=== PATIENT | male | born 1965 | race Caucasian/White ===

== ENCOUNTER 2016-06-01 02:15 | Emergency (ER) | payer MEDICAID ==
[~2016-06-01] VITALS: Ht 180.3 cm; Wt 74.8 kg
[2016-06-01 02:21] VITALS: BP 130/82
== END 2016-06-01 02:53 | disposition home or self-care (01) ==
LOC: ED 02:46
DX: K08.89 Other specified disorders of teeth and supporting structures (principal)
CPT/HCPCS: 99283

== ENCOUNTER 2017-10-15 10:18 | Emergency (ER) | payer MEDICAID ==
[~2017-10-15] VITALS: Ht 180.3 cm; Wt 75.0 kg
[2017-10-15 11:16] LABS: BASOPHILS # (AUTO) 0.05 x10^3/uL (0-0.1); BASOPHILS % (AUTO) 1 % (0-1); EOSINOPHILS # (AUTO) 0.24 x10^3/uL (0-0.4); EOSINOPHILS % (AUTO) 2 % (1-7); LYMPHOCYTES # (AUTO) 2.66 x10^3/uL (1-3.4); LYMPHOCYTES % (AUTO) 26 % (22-44); MD NO; MEAN CORPUSCULAR HEMOGLOBIN 31.1 pg (27.5-34.5); MEAN CORPUSCULAR HGB CONC 34.3 g/dL (33.2-36.2); MEAN CORPUSCULAR VOLUME 90.7 fL (81-97); MONOCYTES # (AUTO) 0.65 x10^3/uL (0.2-0.8); MONOCYTES % (AUTO) 6 % (2-9); NEUTROPHILS % (AUTO) 65 % (42-75); PLATELET COUNT 218 x10^3/uL (130-400); RED BLOOD COUNT 5.24 x10^6/uL (4.38-5.82); RED CELL DISTRIBUTION WIDTH 13.2 % (9.4-14.8)
[2017-10-15 11:27] LABS: ALBUMIN 3.1 g/dL (3.4-5.0); ANION GAP 7 mmol/L (5-15); CALCIUM 8.6 mg/dL (8.5-10.1); CHLORIDE 97 mmol/L (98-107); CREATININE 1.15 mg/dL (0.7-1.3)
[2017-10-15] MEDS ORDERED: SODIUM CHLORIDE 0.9% 1,000ML IVBOLUS ONE (12:00)
[2017-10-15] MEDS ORDERED: INSULIN REGULAR 100 UNITS/ML, 3ML VIAL SQ-INSULIN ONE (12:00)
[2017-10-15 12:09] LABS: PH, VENOUS 7.386 pH (7.320-7.420)
[2017-10-15 12:10] LABS: FIO2 ROOM AIR %
[2017-10-15 13:01] LABS: ACETONE, SERUM Negative (Negative)
[2017-10-15 14:10] VITALS: BP 118/72
== END 2017-10-15 14:12 | disposition home or self-care (01) ==
LOC: ED 13:05
DX: R60.0 Localized edema (principal); E11.65 Type 2 diabetes mellitus with hyperglycemia; F17.200 Nicotine dependence, unspecified, uncomplicated
CPT/HCPCS: 36415; 80048; 82010; 82040; 82803; 82962; 85025; 93005; 93971; 96360; 96372; 99285; J7030

== ENCOUNTER 2019-04-28 17:09 | Inpatient (IN) | payer MEDICAID ==
[~2019-04-28] VITALS: Ht 180.3 cm; Wt 85.2 kg
[2019-04-28] MEDS ORDERED: VANCOMYCIN PER PHARMACY MC ONE (17:30)
[2019-04-28] MEDS ORDERED: SODIUM CHLORIDE 0.9% 1,000ML IVBOLUS ONE ×2 (17:30→18:30)
[2019-04-28] MEDS ORDERED: SODIUM CHLORIDE FLUSH 10ML SYR IVF ONE (17:30)
[2019-04-28] MEDS ORDERED: PIPERACILLIN/TAZO/PMX 3.375GM 50 ML IVPB ONE (17:45)
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
[2019-04-28] MEDS ORDERED: VANCOMYCIN 1,600 MG in SODIUM CHLORIDE 0.9% 250 ML IV ONE (18:00)
[2019-04-28 18:10] LABS: MEAN CORPUSCULAR HEMOGLOBIN 28.2 pg (27.5-34.5); MEAN CORPUSCULAR HGB CONC 32.7 g/dL (33.2-36.2); MEAN CORPUSCULAR VOLUME 86.1 fL (81-97); MEAN PLATELET VOLUME 7.8 fL (7.4-10.4); PLATELET COUNT 417 x10^3/uL (130-400); RED BLOOD COUNT 4.61 x10^6/uL (4.38-5.82); RED CELL DISTRIBUTION WIDTH 14.3 % (9.4-14.8)
--- NOTE | 2019-04-28 18:10 | NUR ---
SUPPLIES RETRIEVED FOR IV START. LEFT ARM PLACED ON PROTECTIVE PAD. RN INSPECTS ARM FOR IV START. ARM CLEANSED USING CHLORAPREP APPLICATOR, AND AREA CLEANSED USING A FRICTION MOTION. WHILE AREA DRIES, RN PREPARES SALINE LOCK, AND LAB TUBES. BLOOD CULTURE TUBES OPENED AND CLEANSED WITH ETOH PREP PADS. HANDS WASHED AND GLOVES DONNED. TOURNIQUET APPLIED TO HARDIK AND 18GA JELCO INSERTED. IMMEDIATE BLOOD RETURN AND CATH GOES IN SMOOTHLY. PRESSURE APPLIED TO TIP OF CATHETER, AND BLOOD TRANSFER DEVICE ATTACHED. LAB TUBES FILLED TO CAPACITY VIA BLOOD TRANSFER DEVICE. AFTER LAST TUBE FILLED, TOURNIQUET RELEASED AND BLOOD TRANSFER DEVICE REMOVED. SALINE LOCK APPLIED AND LINE FLUSHED. PIV FLUSHES VERY EASILY. SKIN BARRIER SWAB STICK USED AROUND PIV ENTERANCE SITE. WHILE DRYING, RN FLUSHES LINE AGAIN WITH ANOTHER 10CC NACL. DRESSING NOW APPLIED AND LINE SECURED. LAB TUBES NOW LABELED WITH RN IDENTIFIER, DATE, TIME, SITE AND AMOUNT. LAB TUBES PLACED IN RED BIOHAZARD BAG WITH LAB LABELS AND SET ASIDE. RN DISCONNECTS NACL BOLUS THAT WAS STARTED BY [facility]. 18GA PIV INTACT AND NO INFILTRATION NOTED. SITE IS CDI WELL. RN SCRUBS THE HUB, ATTACHES A 10ML SYRINGE OF NACL AND LINE FLUSHED. LINE FLUSHES VERY EASY. EASY PULL ON SYRINGE ALLOWS BLOOD FLOW IN TUBING. 10ML OF BLOOD OBTAINED AND DISCARDED WASTE. BLOOD TRANSFER DEVICE ATTACHED AND BLOOD CULTURE TUBES PURPLE AND LESLIE COLLECTED. BLOOD TRANSFER DEVICE REMOVED AFTER BLOOD COLLECTION, AND HUB SCRUBBED AGAIN. LINE NOW FLUSHED WITH A TOTAL OF 20ML NACL AND LOCK ENGAGED. PT TOLERATED PROCEDURE WELL. BLOOD CULTURE TUBES NOW LABELED WITH NAME, TIME, RN IDENTIFIER, AMOUNT AND SITE USED. ALL LAB PLACED IN RED BIOHAZARD BAGS AND SENT VIA TUBE SYSTEM. RN NOW CHARTS IV ACCESS, BOTH NEW START AND [facility] LINE. ORDERS HAVE BEEN PLACED FOR IV ANTIBIOTICS. SUPPLIES TAKEN TO ROOM TO START MEDICATIONS. RELIEF RN AT BEDSIDE TO GET REPORT WHILE PRIMARY RN GOES TO LUNCH BREAK. PT STABLE, DENIES ANY PAIN OR NEEDS AT THIS TIME.
[2019-04-28] MEDS ORDERED: PIPERACILLIN/TAZO/PMX 3.375GM 50 ML ONE (18:20)
[2019-04-28] MEDS ORDERED: DIPH,PERTUSS(ACELL),TET VAC/PF 0.5 ML IM-VACC ONE (18:21)
[2019-04-28 18:23] LABS: ALANINE AMINOTRANSFERASE 15 U/L (12-78); ALBUMIN 1.9 g/dL (3.4-5.0); ANION GAP 8 mmol/L (5-15); CALCIUM 8.4 mg/dL (8.5-10.1); CHLORIDE 97 mmol/L (98-107); CREATININE 1.23 mg/dL (0.7-1.3)
[2019-04-28 18:25] LABS: ALKALINE PHOSPHATASE 269 U/L (45-117); BILIRUBIN,TOTAL 0.2 mg/dL (0.2-1.0); TOTAL PROTEIN 7.4 g/dL (6.4-8.2)
[2019-04-28] MEDS ORDERED: IBUP-1902 PO (18:31)
[2019-04-28 18:34] LABS: BASOPHILS # (AUTO) 0.01 x10^3/uL (0-0.1); BASOPHILS % (AUTO) 0 % (0-1); EOSINOPHILS % (AUTO) 1 % (1-7); LYMPHOCYTES # (AUTO) 1.37 x10^3/uL (1-3.4); LYMPHOCYTES % (AUTO) 6 % (22-44); MD SCAN; MONOCYTES # (AUTO) 1.09 x10^3/uL (0.2-0.8); MONOCYTES % (AUTO) 5 % (2-9); NEUTROPHILS # (AUTO) 20.41 x10^3/uL (1.8-6.8); NEUTROPHILS % (AUTO) 88 % (42-75)
--- NOTE | 2019-04-28 19:00 | NUR ---
RN RETURNS FROM BREAK AND RECEIVES REPORT FROM RELIEF RN. ANTIBIOTICS ARE RUNNING, AND BOLUS OF 2 LITERS HAS BEEN STARTED. PT RESTING IN BED WITHOUT ANY DIFFICULTY. WILL CONTINUE TO MONITOR PATIENT, DUE TO EXTREME INFECTION AND CELLULITIS OF LOWER EXTREMITIES.
--- NOTE | 2019-04-28 19:10 | NUR ---
KINZA RN: JACOB PER APR. REPOSITIONED LEG, GIVEN URINAL. VSS, ST 100S ON MONITOR, AFEBRILE. AWAITING ADMIT. CALLBELL IN REACH.
[2019-04-28] MEDS ORDERED: SODIUM CHLORIDE 0.9% 1,000 ML IV ONE (19:52)
[2019-04-28] MEDS ORDERED: SODIUM CHLORIDE FLUSH 10ML SYR IVF PRN (20:00)
[2019-04-28] MEDS ORDERED: INSULIN REGULAR 100 UNITS/ML, 3ML VIAL SQ-INSULIN ONE (20:30)
--- NOTE | 2019-04-28 20:30 | NUR ---
PT REPOSITIONED IN BED WITH ASSIST OF 2. SHEETS AND GOWN CHANGED DRAINAGE FROM WOUND SOAKED THROUGH AND PATIENT IS WET AND COLD. WRAP MADE WITH TOWEL AND CHUX TO TRY AND HELP CONTAIN DRAINAGE TO SPECIFIC AREA AWAY FROM PATIENT. WARM BLANKETS APPLIED. IV VANCOMYCIN IS COMPLETE, ALL IV DISCONNECTED, AND PATIENT MOVE HIS ARMS FREELY.''
[2019-04-28] MEDS ORDERED: INSULIN SINGLE DOSE, ER ONE (20:32)
--- NOTE | 2019-04-28 21:30 | NUR ---
REPORT TO FRANKY SAUCEDO. PT SLEEPING. WOKE PATIENT TO LET HIM KNOW HE WAS GOING TO A ROOM WITH A BED. PT EXCITED.' ' PT DISCHARGED FROM ED WITHOUT DIFF.
[2019-04-28] MEDS ORDERED: DEXTROSE 50%, 50ML SYRINGE IVPush PRN (22:00)
[2019-04-28] MEDS ORDERED: BISACODYL 10 MG SUPP PR PRN (22:00)
[2019-04-28] MEDS ORDERED: PHARMACOKINETIC MONITORING MC PRN (22:00)
[2019-04-28] MEDS ORDERED: VANCOMYCIN PER PHARMACY MC PRN (22:00)
[2019-04-28] MEDS ORDERED: PROMETHAZINE 25 MG/ML, 1ML IM PRN (22:00)
[2019-04-28] MEDS ORDERED: PHARMACOKINETIC CONSULTATION MC ONE (22:00)
[2019-04-28] MEDS ORDERED: DEXTROSE 4 GM TAB.CHEW PO PRN (22:00)
[2019-04-28] MEDS ORDERED: ENALAPRILAT 1.25 MG/ML, 2ML IVPush PRN (22:00)
[2019-04-28] MEDS ORDERED: LABETALOL 5MG/ML, 20ML IVPush PRN (22:00)
[2019-04-28] MEDS ORDERED: ACETAMINOPHEN 325 MG TABLET PO PRN (22:00)
[2019-04-28] MEDS ORDERED: GLUCAGON 1 MG IM PRN (22:00)
[2019-04-28] MEDS ORDERED: ONDANSETRON 2MG/ML, 2ML IVPush PRN (22:00)
[2019-04-28] MEDS: SODIUM CHLORIDE 0.9% 1,000 ML IV SCH (22:35)
[2019-04-28] MEDS: PIPERACILLIN/TAZO/PMX 3.375GM 50 ML IV SCH (22:35)
[2019-04-28] MEDS: ENOXAPARIN 40 MG/0.4 ML SQ SCH (22:45)
[2019-04-28 22:56] VITALS: BP 130/77
[2019-04-28] MEDS ORDERED: OMNIPAQUE 350 MG/ML, 100ML BOTTLE ONE (23:39)
[2019-04-29 00:31] VITALS: BP 137/79
[2019-04-29] MEDS: SODIUM CHLORIDE 0.9% 1,000 ML IV SCH ×2 (04:09→15:56)
[2019-04-29] MEDS: PIPERACILLIN/TAZO/PMX 3.375GM 50 ML IV SCH ×3 (04:09→22:08)
[2019-04-29 06:38] LABS: MEAN CORPUSCULAR HEMOGLOBIN 28.5 pg (27.5-34.5); MEAN CORPUSCULAR VOLUME 86.5 fL (81-97); MEAN PLATELET VOLUME 7.5 fL (7.4-10.4); PLATELET COUNT 392 x10^3/uL (130-400); RED BLOOD COUNT 4.15 x10^6/uL (4.38-5.82); RED CELL DISTRIBUTION WIDTH 14.3 % (9.4-14.8)
[2019-04-29 06:41] LABS: CREATININE 0.87 mg/dL (0.7-1.3)
[2019-04-29] MEDS ORDERED: VANCOMYCIN 1,600 MG in SODIUM CHLORIDE 0.9% 250 ML IV SCH (07:00)
[2019-04-29] MEDS ORDERED: VANCOMYCIN 1,600 MG in SODIUM CHLORIDE 0.9% 250 ML IV ONE (07:00)
[2019-04-29 07:02] LABS: BASOPHILS # (AUTO) 0.03 x10^3/uL (0-0.1); BASOPHILS % (AUTO) 0 % (0-1); EOSINOPHILS # (AUTO) 0.26 x10^3/uL (0-0.4); EOSINOPHILS % (AUTO) 1 % (1-7); LYMPHOCYTES # (AUTO) 1.76 x10^3/uL (1-3.4); LYMPHOCYTES % (AUTO) 9 % (22-44); MD SCAN; MONOCYTES # (AUTO) 0.93 x10^3/uL (0.2-0.8); MONOCYTES % (AUTO) 5 % (2-9); NEUTROPHILS # (AUTO) 16.38 x10^3/uL (1.8-6.8); NEUTROPHILS % (AUTO) 85 % (42-75)
[2019-04-29 07:43] LABS: ESTIMATED AVERAGE GLUCOSE 355 mg/dL (0-126)
[2019-04-29 07:54] VITALS: BP 137/73
[2019-04-29] MEDS: INSULIN LISPRO 100 UNITS/ML, PEN SQ-INSULIN SCH ×5 (08:24→22:10)
[2019-04-29] MEDS: SODIUM CHLORIDE FLUSH 10ML SYR IVF SCH ×2 (08:25→22:08)
[2019-04-29] MEDS ORDERED: FENTANYL PF 100 MCG/2ML ONE ×2 (11:02→11:53)
[2019-04-29] MEDS ORDERED: MIDAZOLAM 1 MG/ML, 2ML ONE (11:03)
[2019-04-29] MEDS ORDERED: LIDOCAINE-MPF 2% ,5ML ONE (11:04)
[2019-04-29] MEDS ORDERED: PROPOFOL 10 MG/ML, 20ML ONE (11:04)
[2019-04-29] MEDS ORDERED: ACETAMINOPHEN 325 MG TABLET PO PRN (11:30)
[2019-04-29] MEDS ORDERED: ONDANSETRON 2MG/ML, 2ML IV PRN (11:30)
[2019-04-29] MEDS ORDERED: MEPERIDINE/PF 25MG/ML,1ML IVPush PRN (11:30)
[2019-04-29] MEDS ORDERED: PROMETHAZINE 25 MG/ML, 1ML IV PRN (11:30)
[2019-04-29] MEDS ORDERED: FENTANYL PF 100 MCG/2ML IV PRN (11:30)
[2019-04-29] MEDS ORDERED: hydrALAzine 20 MG/ML, 1ML IV PRN (11:30)
[2019-04-29] MEDS ORDERED: LABETALOL 5MG/ML, 20ML IV PRN (11:30)
[2019-04-29] MEDS ORDERED: EPHEDRINE 50 MG/ML, 1ML IVPush PRN (11:30)
[2019-04-29] MEDS ORDERED: OXYcodone 5 MG/5 ML ORAL.SOL UDC PO PRN (11:30)
[2019-04-29] MEDS ORDERED: HYDROmorphone 2 MG/ML, 1ML IVPush PRN (11:30)
[2019-04-29] MEDS ORDERED: DEXAMETHASONE 4 MG/ML, 1ML ONE ×2 (12:08)
[2019-04-29] MEDS ORDERED: KETOROLAC 30 MG/1 ML ONE (12:08)
[2019-04-29] MEDS ORDERED: ONDANSETRON 2MG/ML, 2ML ONE (12:08)
[2019-04-29] MEDS: INSULIN REGULAR 100 UNITS/ML, 3ML VIAL SQ-INSULIN SCH (12:50)
[2019-04-29] MEDS ORDERED: INSULIN SINGLE DOSE, ER ONE (12:51)
[2019-04-29 13:47] VITALS: BP 112/67
[2019-04-29] MEDS: VANCOMYCIN 1,600 MG in SODIUM CHLORIDE 0.9% 250 ML IV SCH (17:49)
[2019-04-29 18:26] VITALS: BP 128/80
[2019-04-29] MEDS: ENOXAPARIN 40 MG/0.4 ML SQ SCH (22:08)
[2019-04-29 22:33] LABS: MICROSCOPIC AUTO
[2019-04-29 22:39] LABS: CULTURE INDICATED? NO
[2019-04-29 23:45] VITALS: BP 120/75
[2019-04-30 03:49] VITALS: BP 135/82
[2019-04-30] MEDS: PIPERACILLIN/TAZO/PMX 3.375GM 50 ML IV SCH ×4 (04:26→21:56)
[2019-04-30 05:21] LABS: ANION GAP 7 mmol/L (5-15); CALCIUM 7.9 mg/dL (8.5-10.1); CHLORIDE 104 mmol/L (98-107); CREATININE 0.92 mg/dL (0.7-1.3)
[2019-04-30 05:24] LABS: MEAN CORPUSCULAR HEMOGLOBIN 28.6 pg (27.5-34.5); MEAN CORPUSCULAR HGB CONC 33.3 g/dL (33.2-36.2); MEAN CORPUSCULAR VOLUME 85.9 fL (81-97); MEAN PLATELET VOLUME 7.7 fL (7.4-10.4); PLATELET COUNT 428 x10^3/uL (130-400); RED BLOOD COUNT 3.99 x10^6/uL (4.38-5.82); RED CELL DISTRIBUTION WIDTH 14.7 % (9.4-14.8)
[2019-04-30 05:26] LABS: VANCOMYCIN,TROUGH 13.4 mcg/mL (5.0-10.0)
[2019-04-30] MEDS: VANCOMYCIN 1,600 MG in SODIUM CHLORIDE 0.9% 250 ML IV SCH ×2 (05:48→18:04)
[2019-04-30 06:09] LABS: MD YES
[2019-04-30 06:11] LABS: BANDS%(MANUAL) 4 % (0-7); LYMPH#(MANUAL) 0.75 x10^3/uL (1-3.4); LYMPHS% (MANUAL) 3 % (22-44); METAMYELOCYTES# (MANUAL) 0.25 x10^3/uL (0-0); METAMYELOCYTES% (MANUAL) 1 % (0-1); MYELOCYTES# (MANUAL) 0.25 x10^3/uL (0-0); MYELOCYTES% (MANUAL) 1 % (0-0); SEG#(MANUAL) 22.75 x10^3/uL (1.8-6.8); SEGS% (MANUAL) 91 % (42-75)
[2019-04-30 06:12] LABS: <PLATELET ESTIMATE> INCREASED; <PLT MORPHOLOGY> NORMAL PLT MORPH; <RBC MORPHOLOGY> NORMAL
[2019-04-30] MEDS: INSULIN LISPRO 100 UNITS/ML, PEN SQ-INSULIN SCH ×4 (07:30→21:57)
[2019-04-30] MEDS: SODIUM CHLORIDE FLUSH 10ML SYR IVF SCH ×2 (07:34→21:00)
[2019-04-30 08:21] VITALS: BP 133/79
[2019-04-30] MEDS ORDERED: INSULIN GLARGINE 100 UNITS/ML, PEN SQ-INSULIN SCH (09:00)
[2019-04-30] MEDS: INSULIN REGULAR 100 UNITS/ML, 3ML VIAL SQ-INSULIN SCH ×3 (09:24→16:00)
[2019-04-30 13:03] VITALS: BP 129/76
[2019-04-30] MEDS: HYDROcodone/APAP 5/325 TABLET PO PRN ×2 (16:02→21:56)
[2019-04-30 17:52] VITALS: BP 122/74
[2019-04-30] MEDS: ENOXAPARIN 40 MG/0.4 ML SQ SCH (21:56)
[2019-05-01 01:36] VITALS: BP 147/90
[2019-05-01] MEDS: PIPERACILLIN/TAZO/PMX 3.375GM 50 ML IV SCH ×2 (04:26→10:28)
[2019-05-01] MEDS: VANCOMYCIN 1,600 MG in SODIUM CHLORIDE 0.9% 250 ML IV SCH (05:40)
[2019-05-01 05:45] LABS: MEAN CORPUSCULAR HEMOGLOBIN 28.6 pg (27.5-34.5); MEAN CORPUSCULAR HGB CONC 33.3 g/dL (33.2-36.2); MEAN PLATELET VOLUME 7.7 fL (7.4-10.4); PLATELET COUNT 464 x10^3/uL (130-400); RED BLOOD COUNT 3.87 x10^6/uL (4.38-5.82); RED CELL DISTRIBUTION WIDTH 14.6 % (9.4-14.8)
[2019-05-01 05:49] LABS: ANION GAP 5 mmol/L (5-15); CALCIUM 7.9 mg/dL (8.5-10.1); CHLORIDE 106 mmol/L (98-107); CREATININE 0.76 mg/dL (0.7-1.3)
[2019-05-01 06:07] LABS: MD YES
[2019-05-01 06:09] LABS: BANDS%(MANUAL) 1 % (0-7); LYMPH#(MANUAL) 2.76 x10^3/uL (1-3.4); LYMPHS% (MANUAL) 14 % (22-44); METAMYELOCYTES% (MANUAL) 1 % (0-1); MONOS#(MANUAL) 0.99 x10^3/uL (0.3-2.7); MONOS% (MANUAL) 5 % (2-9); SEG#(MANUAL) 15.56 x10^3/uL (1.8-6.8); SEGS% (MANUAL) 79 % (42-75)
[2019-05-01 06:10] LABS: <PLATELET ESTIMATE> INCREASED; <PLT MORPHOLOGY> NORMAL PLT MORPH; POLYCHROMASIA 1+
[2019-05-01] MEDS: INSULIN LISPRO 100 UNITS/ML, PEN SQ-INSULIN SCH ×4 (07:00→20:42)
[2019-05-01] MEDS: INSULIN REGULAR 100 UNITS/ML, 3ML VIAL SQ-INSULIN SCH ×3 (07:00→16:11)
[2019-05-01] MEDS ORDERED: MIDAZOLAM 1 MG/ML, 2ML ONE (07:05)
[2019-05-01] MEDS ORDERED: FENTANYL PF 250 MCG/5ML ONE (07:06)
[2019-05-01] MEDS ORDERED: PROPOFOL 10 MG/ML, 50ML ONE (07:07)
[2019-05-01] MEDS ORDERED: PROPOFOL 10 MG/ML, 20ML ONE ×2 (07:07→07:33)
[2019-05-01] MEDS ORDERED: ONDANSETRON 2MG/ML, 2ML ONE (07:33)
[2019-05-01] MEDS ORDERED: MEPERIDINE/PF 25MG/ML,1ML IVPush PRN (08:00)
[2019-05-01] MEDS ORDERED: hydrALAzine 20 MG/ML, 1ML IV PRN (08:00)
[2019-05-01] MEDS ORDERED: PROMETHAZINE 12.5 MG SUPP PR PRN (08:00)
[2019-05-01] MEDS ORDERED: MIDAZOLAM 1 MG/ML, 2ML IV PRN (08:00)
[2019-05-01] MEDS ORDERED: ONDANSETRON 2MG/ML, 2ML IV PRN (08:00)
[2019-05-01] MEDS ORDERED: ONDANSETRON ODT 8 MG PO PRN (08:00)
[2019-05-01] MEDS ORDERED: HALOPERIDOL 5 MG/ML IV PRN (08:00)
[2019-05-01] MEDS ORDERED: ALBUTEROL SULFATE 2.5 MG/3 ML NPPB PRN (08:00)
[2019-05-01] MEDS ORDERED: PROMETHAZINE 25 MG/ML, 1ML IV PRN (08:00)
[2019-05-01] MEDS ORDERED: EPHEDRINE 50 MG/ML, 1ML IVPush PRN (08:00)
[2019-05-01] MEDS ORDERED: OXYcodone 5 MG/5 ML ORAL.SOL UDC PO PRN (08:00)
[2019-05-01] MEDS ORDERED: DIAZEPAM 5 MG/ML, 2ML IVPush PRN (08:00)
[2019-05-01] MEDS ORDERED: ACETAMINOPHEN 325 MG TABLET PO PRN (08:00)
[2019-05-01] MEDS ORDERED: LABETALOL 5MG/ML, 20ML IV PRN (08:00)
[2019-05-01] MEDS ORDERED: HYDROmorphone 2 MG/ML, 1ML IVPush PRN (08:00)
[2019-05-01] MEDS ORDERED: ACETAMINOPHEN 650 MG/20.3 ML UDC ONE (08:06)
[2019-05-01] MEDS ORDERED: OXYcodone 5 MG/5 ML ORAL.SOL UDC ONE (08:06)
[2019-05-01] MEDS ORDERED: FENTANYL PF 100 MCG/2ML ONE (08:06)
[2019-05-01] MEDS: FENTANYL PF 100 MCG/2ML IV PRN ×2 (08:13→08:23)
[2019-05-01] MEDS ORDERED: TAMSULOSIN 0.4 MG CAP.ER.24H ONE (09:08)
[2019-05-01 09:10] VITALS: BP 142/84
[2019-05-01] MEDS: INSULIN GLARGINE 100 UNITS/ML, PEN SQ-INSULIN SCH (09:20)
[2019-05-01] MEDS: TAMSULOSIN 0.4 MG CAP.ER.24H PO SCH (09:20)
[2019-05-01] MEDS: SODIUM CHLORIDE FLUSH 10ML SYR IVF SCH ×2 (09:21→21:46)
[2019-05-01 12:15] VITALS: BP 150/89
[2019-05-01] MEDS: HYDROcodone/APAP 5/325 TABLET PO PRN ×2 (16:18→21:47)
[2019-05-01] MEDS: CEFAZOLIN PMX 2GM/50ML 50 ML IVPB SCH ×2 (16:18→23:48)
[2019-05-01 18:13] VITALS: BP 121/74
[2019-05-01] MEDS: ENOXAPARIN 40 MG/0.4 ML SQ SCH (21:46)
[2019-05-01] MEDS: POLYETHYLENE GLYCOL 17 GM PACKET PO PRN (21:46)
[2019-05-01 23:32] VITALS: BP 131/77
[2019-05-02] MEDS: HYDROcodone/APAP 5/325 TABLET PO PRN ×3 (02:08→22:15)
[2019-05-02 03:43] VITALS: BP 132/76
[2019-05-02 05:13] LABS: ALANINE AMINOTRANSFERASE 39 U/L (12-78); ALBUMIN 1.5 g/dL (3.4-5.0); ANION GAP 6 mmol/L (5-15); CALCIUM 7.8 mg/dL (8.5-10.1); CHLORIDE 107 mmol/L (98-107); CREATININE 1.62 mg/dL (0.7-1.3)
[2019-05-02 05:15] LABS: ALKALINE PHOSPHATASE 440 U/L (45-117); BILIRUBIN,TOTAL 0.2 mg/dL (0.2-1.0); TOTAL PROTEIN 6.4 g/dL (6.4-8.2)
[2019-05-02 05:18] LABS: MEAN CORPUSCULAR HEMOGLOBIN 28.6 pg (27.5-34.5); MEAN CORPUSCULAR HGB CONC 33.3 g/dL (33.2-36.2); MEAN CORPUSCULAR VOLUME 85.9 fL (81-97); MEAN PLATELET VOLUME 7.5 fL (7.4-10.4); PLATELET COUNT 583 x10^3/uL (130-400); RED BLOOD COUNT 4.19 x10^6/uL (4.38-5.82); RED CELL DISTRIBUTION WIDTH 14.7 % (9.4-14.8)
[2019-05-02 05:52] LABS: MD YES
[2019-05-02 05:54] LABS: <PLATELET ESTIMATE> INCREASED; <PLT MORPHOLOGY> NORMAL PLT MORPH; <RBC MORPHOLOGY> NORMAL; BAND#(MANUAL) 0.21 x10^3/uL; BANDS%(MANUAL) 1 % (0-7); EOS#(MANUAL) 0.21 x10^3/uL (0.0-0.4); EOS% (MANUAL) 1 % (1-7); LYMPH#(MANUAL) 2.13 x10^3/uL (1-3.4); LYMPHS% (MANUAL) 10 % (22-44); MONOS#(MANUAL) 0.64 x10^3/uL (0.3-2.7); MONOS% (MANUAL) 3 % (2-9); MYELOCYTES# (MANUAL) 0.43 x10^3/uL (0-0); MYELOCYTES% (MANUAL) 2 % (0-0); SEG#(MANUAL) 17.68 x10^3/uL (1.8-6.8); SEGS% (MANUAL) 83 % (42-75)
[2019-05-02 06:31] VITALS: BP 141/78
[2019-05-02] MEDS ORDERED: PHARMACY MAY ADJ FOR RENAL FX MC PRN (07:00)
[2019-05-02] MEDS: TAMSULOSIN 0.4 MG CAP.ER.24H PO SCH (08:26)
[2019-05-02] MEDS: POLYETHYLENE GLYCOL 17 GM PACKET PO PRN (08:27)
[2019-05-02] MEDS: INSULIN LISPRO 100 UNITS/ML, PEN SQ-INSULIN SCH ×4 (08:27→20:50)
[2019-05-02] MEDS: INSULIN GLARGINE 100 UNITS/ML, PEN SQ-INSULIN SCH (08:27)
[2019-05-02] MEDS: CEFAZOLIN PMX 2GM/50ML 50 ML IVPB SCH ×3 (08:28→23:50)
[2019-05-02] MEDS: SODIUM CHLORIDE FLUSH 10ML SYR IVF SCH ×2 (10:28→21:00)
[2019-05-02 12:48] VITALS: BP 164/80
[2019-05-02 14:24] VITALS: BP 151/81
[2019-05-02 18:40] VITALS: BP 148/76
[2019-05-02] MEDS: ENOXAPARIN 40 MG/0.4 ML SQ SCH (22:06)
[2019-05-03 00:23] VITALS: BP_SYST 125; BP_SYST 165; BP_DIAS 75; BP_DIAS 80
[2019-05-03] MEDS: HYDROcodone/APAP 5/325 TABLET PO PRN ×4 (04:57→22:10)
[2019-05-03 05:48] LABS: HCT (SEDRATE) 35.5 % (39.2-51.8)
[2019-05-03 05:49] LABS: MEAN CORPUSCULAR HEMOGLOBIN 28.3 pg (27.5-34.5); MEAN CORPUSCULAR HGB CONC 32.9 g/dL (33.2-36.2); MEAN CORPUSCULAR VOLUME 86.2 fL (81-97); MEAN PLATELET VOLUME 7.4 fL (7.4-10.4); PLATELET COUNT 630 x10^3/uL (130-400); RED CELL DISTRIBUTION WIDTH 14.9 % (9.4-14.8)
[2019-05-03 05:52] LABS: ALANINE AMINOTRANSFERASE 26 U/L (12-78); ALBUMIN 1.5 g/dL (3.4-5.0); ANION GAP 7 mmol/L (5-15); CHLORIDE 105 mmol/L (98-107); CREATININE 1.67 mg/dL (0.7-1.3)
[2019-05-03 05:59] LABS: ALKALINE PHOSPHATASE 418 U/L (45-117); BILIRUBIN,TOTAL 0.3 mg/dL (0.2-1.0); TOTAL PROTEIN 6.5 g/dL (6.4-8.2)
[2019-05-03 06:10] LABS: C-REACTIVE PROTEIN, QUANT > 19.00 mg/dL (0.02-0.49)
[2019-05-03] MEDS: INSULIN LISPRO 100 UNITS/ML, PEN SQ-INSULIN SCH ×4 (06:33→22:12)
[2019-05-03 06:50] LABS: MD YES
[2019-05-03 06:51] LABS: EOS#(MANUAL) 0.19 x10^3/uL (0.0-0.4); EOS% (MANUAL) 1 % (1-7); LYMPH#(MANUAL) 2.67 x10^3/uL (1-3.4); LYMPHS% (MANUAL) 14 % (22-44); METAMYELOCYTES# (MANUAL) 0.38 x10^3/uL (0-0); METAMYELOCYTES% (MANUAL) 2 % (0-1); MONOS#(MANUAL) 1.53 x10^3/uL (0.3-2.7); MONOS% (MANUAL) 8 % (2-9); MYELOCYTES# (MANUAL) 0.19 x10^3/uL (0-0); MYELOCYTES% (MANUAL) 1 % (0-0); SEG#(MANUAL) 14.13 x10^3/uL (1.8-6.8); SEGS% (MANUAL) 74 % (42-75)
[2019-05-03 06:53] LABS: <PLATELET ESTIMATE> INCREASED; <PLT MORPHOLOGY> NORMAL PLT MORPH; POLYCHROMASIA 1+
[2019-05-03 06:56] VITALS: BP 123/69
[2019-05-03] MEDS: INSULIN GLARGINE 100 UNITS/ML, PEN SQ-INSULIN SCH (07:47)
[2019-05-03] MEDS: CEFAZOLIN PMX 2GM/50ML 50 ML IVPB SCH ×2 (07:47→16:44)
[2019-05-03] MEDS: TAMSULOSIN 0.4 MG CAP.ER.24H PO SCH (07:47)
[2019-05-03] MEDS: SODIUM CHLORIDE FLUSH 10ML SYR IVF SCH ×2 (07:47→22:09)
[2019-05-03] MEDS ORDERED: ONDANSETRON 2MG/ML, 2ML ONE (12:29)
[2019-05-03] MEDS ORDERED: PROPOFOL 10 MG/ML, 20ML ONE (12:29)
[2019-05-03] MEDS ORDERED: FENTANYL PF 100 MCG/2ML ONE (13:18)
[2019-05-03] MEDS ORDERED: OXYcodone 5 MG/5 ML ORAL.SOL UDC ONE (13:23)
[2019-05-03] MEDS ORDERED: ACETAMINOPHEN 325 MG TABLET PO PRN (13:30)
[2019-05-03] MEDS ORDERED: MIDAZOLAM 1 MG/ML, 2ML IV PRN (13:30)
[2019-05-03] MEDS ORDERED: OXYcodone 5 MG/5 ML ORAL.SOL UDC PO PRN (13:30)
[2019-05-03] MEDS ORDERED: FENTANYL PF 100 MCG/2ML IV PRN (13:30)
[2019-05-03 14:05] VITALS: BP 141/85
[2019-05-03] MEDS: morphine SULFATE 10 MG/ML, 1ML IVPush PRN (15:49)
[2019-05-03] MEDS: POLYETHYLENE GLYCOL 17 GM PACKET PO PRN (16:44)
[2019-05-03] MEDS: HEPARIN 5,000 UNITS/ML, 1ML SQ SCH (18:25)
[2019-05-03 18:27] VITALS: BP 136/80
[2019-05-04] MEDS: CEFAZOLIN PMX 2GM/50ML 50 ML IVPB SCH ×4 (00:05→23:47)
[2019-05-04 02:12] VITALS: BP 117/61
[2019-05-04] MEDS: HEPARIN 5,000 UNITS/ML, 1ML SQ SCH ×3 (03:06→18:08)
[2019-05-04 05:17] LABS: MEAN CORPUSCULAR HEMOGLOBIN 28.1 pg (27.5-34.5); MEAN CORPUSCULAR HGB CONC 32.5 g/dL (33.2-36.2); MEAN CORPUSCULAR VOLUME 86.6 fL (81-97); MEAN PLATELET VOLUME 7.1 fL (7.4-10.4); PLATELET COUNT 694 x10^3/uL (130-400); RED BLOOD COUNT 3.95 x10^6/uL (4.38-5.82); RED CELL DISTRIBUTION WIDTH 14.6 % (9.4-14.8)
[2019-05-04 05:34] LABS: ANION GAP 4 mmol/L (5-15); CALCIUM 8.1 mg/dL (8.5-10.1); CHLORIDE 104 mmol/L (98-107); CREATININE 1.67 mg/dL (0.7-1.3)
[2019-05-04 06:35] LABS: MD YES
[2019-05-04 06:37] VITALS: BP 142/80
[2019-05-04 06:37] LABS: <RBC MORPHOLOGY> NORMAL; EOS#(MANUAL) 0.18 x10^3/uL (0.0-0.4); EOS% (MANUAL) 1 % (1-7); LYMPH#(MANUAL) 1.09 x10^3/uL (1-3.4); LYMPHS% (MANUAL) 6 % (22-44); MONOS#(MANUAL) 1.63 x10^3/uL (0.3-2.7); MONOS% (MANUAL) 9 % (2-9); SEGS% (MANUAL) 84 % (42-75)
[2019-05-04 06:38] LABS: <PLATELET ESTIMATE> INCREASED; <PLT MORPHOLOGY> NORMAL PLT MORPH
[2019-05-04] MEDS: INSULIN LISPRO 100 UNITS/ML, PEN SQ-INSULIN SCH ×4 (07:57→21:35)
[2019-05-04] MEDS: HYDROcodone/APAP 5/325 TABLET PO PRN ×3 (07:58→21:36)
[2019-05-04] MEDS: SODIUM CHLORIDE FLUSH 10ML SYR IVF SCH ×2 (09:00→21:28)
[2019-05-04] MEDS: POLYETHYLENE GLYCOL 17 GM PACKET PO PRN (09:08)
[2019-05-04] MEDS: TAMSULOSIN 0.4 MG CAP.ER.24H PO SCH (09:08)
[2019-05-04] MEDS: INSULIN GLARGINE 100 UNITS/ML, PEN SQ-INSULIN SCH (09:08)
[2019-05-04] MEDS ORDERED: BISACODYL 10 MG SUPP PR PRN (11:30)
[2019-05-04] MEDS: DOCUSATE 100 MG CAPSULE PO PRN (11:36)
[2019-05-04 12:00] VITALS: BP 118/63
[2019-05-04 20:02] VITALS: BP 133/77
[2019-05-05 01:20] VITALS: BP 134/61
[2019-05-05] MEDS: HEPARIN 5,000 UNITS/ML, 1ML SQ SCH ×3 (03:10→17:23)
[2019-05-05] MEDS: HYDROcodone/APAP 5/325 TABLET PO PRN ×3 (03:13→18:56)
[2019-05-05 06:10] LABS: MEAN CORPUSCULAR HEMOGLOBIN 28.2 pg (27.5-34.5); MEAN CORPUSCULAR HGB CONC 32.5 g/dL (33.2-36.2); MEAN CORPUSCULAR VOLUME 86.5 fL (81-97); MEAN PLATELET VOLUME 7.1 fL (7.4-10.4); PLATELET COUNT 736 x10^3/uL (130-400); RED BLOOD COUNT 3.87 x10^6/uL (4.38-5.82); RED CELL DISTRIBUTION WIDTH 14.8 % (9.4-14.8)
[2019-05-05] MEDS: POLYETHYLENE GLYCOL 17 GM PACKET PO PRN (06:12)
[2019-05-05] MEDS: DOCUSATE 100 MG CAPSULE PO PRN (06:12)
[2019-05-05 06:18] LABS: ALBUMIN 1.5 g/dL (3.4-5.0); ANION GAP 5 mmol/L (5-15); CALCIUM 8.2 mg/dL (8.5-10.1); CHLORIDE 103 mmol/L (98-107)
[2019-05-05 06:21] LABS: HCT (SEDRATE) 33.5 % (39.2-51.8)
[2019-05-05 06:28] LABS: ALKALINE PHOSPHATASE 298 U/L (45-117); TOTAL PROTEIN 6.3 g/dL (6.4-8.2)
[2019-05-05 06:33] LABS: ALANINE AMINOTRANSFERASE < 6 U/L (12-78); BILIRUBIN,TOTAL < 0.1 mg/dL (0.2-1.0)
[2019-05-05 06:46] LABS: BASOPHILS # (AUTO) 0.04 x10^3/uL (0-0.1); BASOPHILS % (AUTO) 0 % (0-1); EOSINOPHILS # (AUTO) 0.57 x10^3/uL (0-0.4); EOSINOPHILS % (AUTO) 3 % (1-7); LYMPHOCYTES % (AUTO) 14 % (22-44); MD SCAN; MONOCYTES # (AUTO) 1.01 x10^3/uL (0.2-0.8); MONOCYTES % (AUTO) 6 % (2-9); NEUTROPHILS # (AUTO) 13.28 x10^3/uL (1.8-6.8); NEUTROPHILS % (AUTO) 76 % (42-75)
[2019-05-05 07:41] VITALS: BP 148/76
[2019-05-05] MEDS: CEFAZOLIN PMX 2GM/50ML 50 ML IVPB SCH ×3 (08:01→23:57)
[2019-05-05] MEDS: INSULIN GLARGINE 100 UNITS/ML, PEN SQ-INSULIN SCH (08:01)
[2019-05-05] MEDS: SODIUM CHLORIDE FLUSH 10ML SYR IVF SCH ×2 (08:02→21:23)
[2019-05-05] MEDS: INSULIN LISPRO 100 UNITS/ML, PEN SQ-INSULIN SCH ×4 (08:02→21:00)
[2019-05-05] MEDS: TAMSULOSIN 0.4 MG CAP.ER.24H PO SCH (08:02)
[2019-05-05 14:24] VITALS: BP 105/62
[2019-05-05] MEDS ORDERED: MAGNESIUM HYDROXIDE 8%, 30ML UDC PO PRN (17:30)
[2019-05-05] MEDS ORDERED: MAGNESIUM CITRATE 300ML ORAL SOL PO PRN (17:30)
[2019-05-05 18:58] VITALS: BP 153/85
[2019-05-06 00:51] VITALS: BP 129/72
[2019-05-06] MEDS: HEPARIN 5,000 UNITS/ML, 1ML SQ SCH ×3 (03:00→19:00)
[2019-05-06 05:30] LABS: BASOPHILS # (AUTO) 0.07 x10^3/uL (0-0.1); BASOPHILS % (AUTO) 0 % (0-1); EOSINOPHILS # (AUTO) 0.48 x10^3/uL (0-0.4); EOSINOPHILS % (AUTO) 3 % (1-7); LYMPHOCYTES % (AUTO) 17 % (22-44); MD NO; MEAN CORPUSCULAR HEMOGLOBIN 28.2 pg (27.5-34.5); MEAN CORPUSCULAR HGB CONC 32.9 g/dL (33.2-36.2); MEAN CORPUSCULAR VOLUME 85.7 fL (81-97); MONOCYTES # (AUTO) 0.95 x10^3/uL (0.2-0.8); MONOCYTES % (AUTO) 6 % (2-9); NEUTROPHILS # (AUTO) 11.69 x10^3/uL (1.8-6.8); NEUTROPHILS % (AUTO) 74 % (42-75); PLATELET COUNT 861 x10^3/uL (130-400); RED BLOOD COUNT 3.99 x10^6/uL (4.38-5.82); RED CELL DISTRIBUTION WIDTH 14.6 % (9.4-14.8)
[2019-05-06 05:36] LABS: ANION GAP 4 mmol/L (5-15); CALCIUM 8.7 mg/dL (8.5-10.1); CHLORIDE 102 mmol/L (98-107)
[2019-05-06 05:37] LABS: CREATININE 1.56 mg/dL (0.7-1.3)
[2019-05-06] MEDS: INSULIN LISPRO 100 UNITS/ML, PEN SQ-INSULIN SCH ×4 (07:00→20:09)
[2019-05-06 07:02] VITALS: BP 146/81
[2019-05-06] MEDS: HYDROcodone/APAP 5/325 TABLET PO PRN ×2 (07:19→22:58)
[2019-05-06] MEDS: TAMSULOSIN 0.4 MG CAP.ER.24H PO SCH (07:19)
[2019-05-06] MEDS: SODIUM CHLORIDE FLUSH 10ML SYR IVF SCH ×2 (07:20→20:09)
[2019-05-06] MEDS: CEFAZOLIN PMX 2GM/50ML 50 ML IVPB SCH ×2 (07:32→16:50)
[2019-05-06] MEDS: INSULIN GLARGINE 100 UNITS/ML, PEN SQ-INSULIN SCH (08:51)
[2019-05-06] MEDS: morphine SULFATE 10 MG/ML, 1ML IVPush PRN (10:21)
[2019-05-06 14:26] VITALS: BP 111/67
[2019-05-06 18:36] VITALS: BP 135/73
[2019-05-07] MEDS: CEFAZOLIN PMX 2GM/50ML 50 ML IVPB SCH ×4 (00:11→23:58)
[2019-05-07 01:03] VITALS: BP 126/69
[2019-05-07] MEDS: HEPARIN 5,000 UNITS/ML, 1ML SQ SCH ×3 (04:29→20:22)
[2019-05-07 06:42] VITALS: BP 149/77
[2019-05-07] MEDS: INSULIN LISPRO 100 UNITS/ML, PEN SQ-INSULIN SCH ×4 (07:00→20:22)
[2019-05-07] MEDS: TAMSULOSIN 0.4 MG CAP.ER.24H PO SCH (08:09)
[2019-05-07] MEDS: HYDROcodone/APAP 5/325 TABLET PO PRN ×2 (08:09→20:22)
[2019-05-07] MEDS: SODIUM CHLORIDE FLUSH 10ML SYR IVF SCH ×2 (08:10→20:21)
[2019-05-07] MEDS: INSULIN GLARGINE 100 UNITS/ML, PEN SQ-INSULIN SCH (08:10)
[2019-05-07 14:45] VITALS: BP 122/74
[2019-05-07 18:40] VITALS: BP 135/73
[2019-05-08 00:01] VITALS: BP 126/72
[2019-05-08] MEDS: HEPARIN 5,000 UNITS/ML, 1ML SQ SCH ×2 (04:30→12:19)
[2019-05-08 05:17] LABS: MEAN CORPUSCULAR HEMOGLOBIN 28.5 pg (27.5-34.5); MEAN CORPUSCULAR HGB CONC 32.6 g/dL (33.2-36.2); MEAN CORPUSCULAR VOLUME 87.5 fL (81-97); MEAN PLATELET VOLUME 6.9 fL (7.4-10.4); PLATELET COUNT 927 x10^3/uL (130-400); RED BLOOD COUNT 4.11 x10^6/uL (4.38-5.82); RED CELL DISTRIBUTION WIDTH 14.7 % (9.4-14.8)
[2019-05-08 06:13] LABS: BASOPHILS # (AUTO) 0.08 x10^3/uL (0-0.1); BASOPHILS % (AUTO) 1 % (0-1); EOSINOPHILS # (AUTO) 0.49 x10^3/uL (0-0.4); EOSINOPHILS % (AUTO) 3 % (1-7); LYMPHOCYTES # (AUTO) 2.46 x10^3/uL (1-3.4); LYMPHOCYTES % (AUTO) 17 % (22-44); MD SCAN; MONOCYTES # (AUTO) 0.95 x10^3/uL (0.2-0.8); MONOCYTES % (AUTO) 7 % (2-9); NEUTROPHILS # (AUTO) 10.26 x10^3/uL (1.8-6.8); NEUTROPHILS % (AUTO) 72 % (42-75)
[2019-05-08 06:58] VITALS: BP 118/69
[2019-05-08] MEDS: INSULIN LISPRO 100 UNITS/ML, PEN SQ-INSULIN SCH ×3 (07:47→17:21)
[2019-05-08] MEDS: INSULIN GLARGINE 100 UNITS/ML, PEN SQ-INSULIN SCH (07:47)
[2019-05-08] MEDS: CEFAZOLIN PMX 2GM/50ML 50 ML IVPB SCH ×2 (07:47→16:10)
[2019-05-08] MEDS: TAMSULOSIN 0.4 MG CAP.ER.24H PO SCH (07:47)
[2019-05-08] MEDS: SODIUM CHLORIDE FLUSH 10ML SYR IVF SCH (07:48)
[2019-05-08 07:51] LABS: ALANINE AMINOTRANSFERASE 15 U/L (12-78); ALBUMIN 1.9 g/dL (3.4-5.0); ANION GAP 5 mmol/L (5-15); CALCIUM 8.9 mg/dL (8.5-10.1); CHLORIDE 102 mmol/L (98-107)
[2019-05-08 07:53] LABS: ALKALINE PHOSPHATASE 288 U/L (45-117); BILIRUBIN,TOTAL 0.2 mg/dL (0.2-1.0); TOTAL PROTEIN 7.5 g/dL (6.4-8.2)
[2019-05-08] MEDS: morphine SULFATE 10 MG/ML, 1ML IVPush PRN (09:39)
[2019-05-08 13:53] VITALS: BP 98/56
[2019-05-08] MEDS ORDERED: HYDR-3237 PO (15:54)
[2019-05-08] MEDS ORDERED: INSU100I11 SQ-INSULIN (15:54)
[2019-05-08] MEDS ORDERED: TAMS-11 PO (15:54)
[2019-05-08] MEDS ORDERED: INSU100I13 SQ-INSULIN (15:54)
[2019-05-08] MEDS ORDERED: HEPA50002 SQ (15:54)
[2019-05-08] MEDS ORDERED: PIPE3.378 IVPB (15:55)
== END 2019-05-08 18:17 | DRG 853 ==
LOC: ED 18:24 → EDIP 20:06 → 3N 21:20 → 4NE 04-29 13:35
PROVIDERS: ADMIT Internal Medicine; ATTEND Internal Medicine
PROC: 0JBP0ZZ Excision of Left Lower Leg Subcutaneous Tissue and Fascia, Open Approach (ICD-10-PCS; principal; 2019-04-29 09:30)
DX: A41.9 Sepsis, unspecified organism (principal); J96.01 Acute respiratory failure with hypoxia; L03.116 Cellulitis of left lower limb; E44.0 Moderate protein-calorie malnutrition; L02.416 Cutaneous abscess of left lower limb; J81.1 Chronic pulmonary edema; N17.9 Acute kidney failure, unspecified; D63.8 Anemia in other chronic diseases classified elsewhere; E11.649 Type 2 diabetes mellitus with hypoglycemia without coma; E11.65 Type 2 diabetes mellitus with hyperglycemia; Z68.26 Body mass index [BMI] 26.0-26.9, adult; E66.9 Obesity, unspecified; F17.200 Nicotine dependence, unspecified, uncomplicated; M72.9 Fibroblastic disorder, unspecified; N32.0 Bladder-neck obstruction; Z91.14 Patient's other noncompliance with medication regimen
CPT/HCPCS: 36415; 84145; 89051; 96365; 96366; 96368; 96372; 99291; J3490; 71045; 76770; 80048; 80053; 80202; 81001; 82565; 82962; 83036; 83605; 83735; 84100; 84520; 85025; 85651; 86140; 87040; 87070; 87075; 87076; 87077; 87176; 87186; 87205; 88305; 93306; 93970; G0378; J0690; J1100; J1644; J1650; J1815; J1885; J2250; J2405; J2543; J2704; J3010; J3370; Q9967; J0330; J2270; J7030; J7050

== ENCOUNTER 2019-08-28 13:00 | Inpatient (IN) | payer MEDICAID ==
[~2019-08-28] VITALS: Ht 180.3 cm; Wt 79.4 kg
[~2019-08-28 13:00] MED LIST: HEPA50002 SQ; HYDR-3237 PO; IBUP-1902 PO; INSU100I11 SQ-INSULIN; INSU100I13 SQ-INSULIN; PIPE3.378 IVPB; TAMS-11 PO
--- NOTE | 2019-08-28 13:12 | NUR ---
WHEELED TO ROOM FROM LOBBY BY BIOPROCESS ENGINEERKATE SCANLON. SHARON.
[2019-08-28] MEDS ORDERED: SODIUM CHLORIDE FLUSH 10ML SYR IVF ONE (13:30)
[2019-08-28 14:00] LABS: MEAN CORPUSCULAR HEMOGLOBIN 27.6 pg (27.5-34.5); MEAN CORPUSCULAR HGB CONC 32.5 g/dL (33.2-36.2); MEAN CORPUSCULAR VOLUME 84.9 fL (81-97); MEAN PLATELET VOLUME 8.2 fL (7.4-10.4); PLATELET COUNT 281 x10^3/uL (130-400); RED BLOOD COUNT 4.06 x10^6/uL (4.38-5.82); RED CELL DISTRIBUTION WIDTH 13.7 % (9.4-14.8)
[2019-08-28 14:10] LABS: ALBUMIN 2.4 g/dL (3.4-5.0); ANION GAP 6 mmol/L (5-15); CALCIUM 8.3 mg/dL (8.5-10.1); CHLORIDE 101 mmol/L (98-107); CREATININE 1.74 mg/dL (0.7-1.3)
[2019-08-28 14:29] LABS: MD YES
[2019-08-28 14:32] LABS: BAND#(MANUAL) 0.65 x10^3/uL; BANDS%(MANUAL) 3 % (0-7); LYMPHS% (MANUAL) 6 % (22-44); MONOS#(MANUAL) 0.43 x10^3/uL (0.3-2.7); MONOS% (MANUAL) 2 % (2-9); SEG#(MANUAL) 19.31 x10^3/uL (1.8-6.8); SEGS% (MANUAL) 89 % (42-75)
[2019-08-28 14:37] LABS: ANISOCYTOSIS 1+; MICROCYTOSIS 1+
[2019-08-28 14:38] LABS: STOMATOCYTES 1+
[2019-08-28 14:40] LABS: <PLATELET ESTIMATE> ADEQUATE
[2019-08-28 14:42] LABS: LARGE PLATELETS 1+
[2019-08-28] MEDS ORDERED: VANCOMYCIN 1,500 MG in SODIUM CHLORIDE 0.9% 250 ML IV ONE (15:00)
[2019-08-28] MEDS ORDERED: SODIUM CHLORIDE 0.9% 1,000ML IVBOLUS ONE (15:00)
[2019-08-28] MEDS ORDERED: AMPICILLIN/SULBACTAM 3 GM in SODIUM CHLORIDE 0.9% 100 ML IV ONE (15:00)
[2019-08-28] MEDS ORDERED: VANCOMYCIN PER PHARMACY MC PRN ×2 (15:00→18:00)
--- NOTE | 2019-08-28 15:25 | NUR ---
ABX STARTED AFTER BLOOD CULTURES DRAWN
--- NOTE | 2019-08-28 15:28 | NUR ---
Report received from SHERYL Lorenzo. This RN to assume care. Awaiting admit orders.
[2019-08-28] MEDS ORDERED: SODIUM CHLORIDE FLUSH 10ML SYR IVF PRN (16:00)
[2019-08-28] MEDS ORDERED: ACETAMINOPHEN 325 MG TABLET PO PRN (16:30)
[2019-08-28] MEDS ORDERED: ACETAMINOPHEN 325 MG TABLET ONE ×2 (16:56→18:45)
--- NOTE | 2019-08-28 17:02 | NUR ---
Patient's temperature steadily increasing; admin Tylenol per apr.
--- NOTE | 2019-08-28 17:40 | NUR ---
Report given to SHERYL Bryan. Patient transferred to room 364.
[2019-08-28] MEDS ORDERED: PHARMACOKINETIC MONITORING MC PRN (18:00)
[2019-08-28] MEDS ORDERED: PHARMACOKINETIC CONSULTATION MC ONE (18:00)
[2019-08-28] MEDS ORDERED: SODIUM CHLORIDE 0.9% 1,000 ML IV SCH (18:00)
[2019-08-28 18:20] VITALS: BP 119/72
[2019-08-28] MEDS: HEPARIN 5,000 UNITS/ML, 1ML SQ SCH (18:24)
[2019-08-28] MEDS ORDERED: ONDANSETRON ODT 4 MG PO PRN (18:30)
[2019-08-28] MEDS ORDERED: ONDANSETRON 2MG/ML, 2ML IVPush PRN (18:30)
[2019-08-28] MEDS ORDERED: ACETAMINOPHEN 325 MG TABLET PO ONE (19:00)
[2019-08-28] MEDS: AMPICILLIN/SULBACTAM 3 GM in SODIUM CHLORIDE 0.9% 100 ML IV SCH (21:13)
[2019-08-28] MEDS: INSULIN LISPRO 100 UNITS/ML, PEN SQ-INSULIN SCH (21:53)
[2019-08-28] MEDS: SENNA/DOCUSATE TABLET PO SCH (21:55)
[2019-08-29 02:18] VITALS: BP 105/65
[2019-08-29] MEDS: HEPARIN 5,000 UNITS/ML, 1ML SQ SCH ×3 (05:10→20:25)
[2019-08-29] MEDS: AMPICILLIN/SULBACTAM 3 GM in SODIUM CHLORIDE 0.9% 100 ML IV SCH ×2 (05:10→13:19)
[2019-08-29] MEDS: SODIUM CHLORIDE 0.9% 1,000 ML IV SCH ×3 (05:11→16:00)
[2019-08-29 05:44] LABS: MEAN CORPUSCULAR HEMOGLOBIN 27.7 pg (27.5-34.5); MEAN CORPUSCULAR VOLUME 86.8 fL (81-97); MEAN PLATELET VOLUME 8.6 fL (7.4-10.4); PLATELET COUNT 233 x10^3/uL (130-400); RED BLOOD COUNT 3.85 x10^6/uL (4.38-5.82); RED CELL DISTRIBUTION WIDTH 13.9 % (9.4-14.8)
[2019-08-29 05:57] LABS: ANION GAP 7 mmol/L (5-15); CHLORIDE 106 mmol/L (98-107); CREATININE 1.56 mg/dL (0.7-1.3)
[2019-08-29 06:09] LABS: BASOPHILS % (AUTO) 0 % (0-1); EOSINOPHILS # (AUTO) 0.01 x10^3/uL (0-0.4); EOSINOPHILS % (AUTO) 0 % (1-7); LYMPHOCYTES # (AUTO) 1.18 x10^3/uL (1-3.4); LYMPHOCYTES % (AUTO) 7 % (22-44); MD SCAN; MONOCYTES # (AUTO) 1.09 x10^3/uL (0.2-0.8); MONOCYTES % (AUTO) 6 % (2-9); NEUTROPHILS # (AUTO) 15.19 x10^3/uL (1.8-6.8); NEUTROPHILS % (AUTO) 87 % (42-75)
[2019-08-29 07:23] VITALS: BP 123/75
[2019-08-29] MEDS: TAMSULOSIN 0.4 MG CAP.ER.24H PO SCH (08:24)
[2019-08-29] MEDS: INSULIN GLARGINE 100 UNITS/ML, PEN SQ-INSULIN SCH (08:24)
[2019-08-29] MEDS: INSULIN LISPRO 100 UNITS/ML, PEN SQ-INSULIN SCH ×4 (08:25→20:37)
[2019-08-29 08:28] LABS: ALBUMIN 2.1 g/dL (3.4-5.0); BILIRUBIN, DIRECT 0.2 mg/dL (0.1-0.2)
[2019-08-29 08:29] LABS: BILIRUBIN,INDIRECT 0.2 mg/dL (0.0-2.0); BILIRUBIN,TOTAL 0.4 mg/dL (0.2-1.0); TOTAL PROTEIN 6.9 g/dL (6.4-8.2)
[2019-08-29] MEDS: OXYcodone IR 5MG TABLET PO PRN ×2 (13:19→20:37)
[2019-08-29 14:00] VITALS: BP 119/72
[2019-08-29] MEDS: ACETAMINOPHEN 500 MG TABLET PO PRN (15:42)
[2019-08-29 16:29] VITALS: BP 116/72
[2019-08-29] MEDS ORDERED: VANCOMYCIN 1,500 MG in SODIUM CHLORIDE 0.9% 250 ML IV SCH (17:30)
[2019-08-29] MEDS ORDERED: SODIUM CHLORIDE 0.9% 1,000 ML IV SCH (18:00)
[2019-08-29 18:42] VITALS: BP 106/64
[2019-08-29] MEDS ORDERED: PHARMACY MAY ADJ FOR RENAL FX MC PRN (19:00)
[2019-08-29 19:27] VITALS: BP 111/71
[2019-08-29] MEDS: SENNA/DOCUSATE TABLET PO SCH (20:24)
[2019-08-29] MEDS: PIPERACILLIN/TAZO/PMX 3.375GM 50 ML IV SCH (20:24)
[2019-08-29] MEDS: MUPIROCIN OINT 2%, 22GM TP SCH (20:25)
[2019-08-30 01:24] VITALS: BP 114/68
[2019-08-30] MEDS: SODIUM CHLORIDE 0.9% 1,000 ML IV SCH (02:11)
[2019-08-30] MEDS: PIPERACILLIN/TAZO/PMX 3.375GM 50 ML IV SCH ×3 (02:11→13:20)
[2019-08-30] MEDS: HEPARIN 5,000 UNITS/ML, 1ML SQ SCH ×2 (05:52→13:20)
[2019-08-30] MEDS: INSULIN GLARGINE 100 UNITS/ML, PEN SQ-INSULIN SCH (08:09)
[2019-08-30] MEDS: INSULIN LISPRO 100 UNITS/ML, PEN SQ-INSULIN SCH ×3 (08:09→16:44)
[2019-08-30] MEDS: TAMSULOSIN 0.4 MG CAP.ER.24H PO SCH (08:10)
[2019-08-30 09:00] LABS: MEAN CORPUSCULAR HEMOGLOBIN 27.4 pg (27.5-34.5); MEAN CORPUSCULAR HGB CONC 31.7 g/dL (33.2-36.2); MEAN CORPUSCULAR VOLUME 86.5 fL (81-97); MEAN PLATELET VOLUME 8.5 fL (7.4-10.4); PLATELET COUNT 206 x10^3/uL (130-400); RED BLOOD COUNT 3.39 x10^6/uL (4.38-5.82); RED CELL DISTRIBUTION WIDTH 14.2 % (9.4-14.8)
[2019-08-30 09:24] LABS: BASOPHILS # (AUTO) 0.02 x10^3/uL (0-0.1); BASOPHILS % (AUTO) 0 % (0-1); EOSINOPHILS % (AUTO) 1 % (1-7); LYMPHOCYTES # (AUTO) 1.36 x10^3/uL (1-3.4); LYMPHOCYTES % (AUTO) 8 % (22-44); MD SCAN; MONOCYTES # (AUTO) 1.05 x10^3/uL (0.2-0.8); MONOCYTES % (AUTO) 6 % (2-9); NEUTROPHILS # (AUTO) 14.85 x10^3/uL (1.8-6.8); NEUTROPHILS % (AUTO) 86 % (42-75)
[2019-08-30 09:56] VITALS: BP 126/79
[2019-08-30 10:14] LABS: ALANINE AMINOTRANSFERASE 61 U/L (12-78); ALBUMIN 1.8 g/dL (3.4-5.0); ANION GAP 9 mmol/L (5-15); CALCIUM 7.9 mg/dL (8.5-10.1); CHLORIDE 108 mmol/L (98-107)
[2019-08-30 10:16] LABS: ALKALINE PHOSPHATASE 353 U/L (45-117); BILIRUBIN,TOTAL 0.6 mg/dL (0.2-1.0); TOTAL PROTEIN 6.7 g/dL (6.4-8.2)
[2019-08-30] MEDS: OXYcodone IR 5MG TABLET PO PRN (15:18)
[2019-08-30] MEDS: MUPIROCIN OINT 2%, 22GM TP SCH (16:51)
[2019-08-30] MEDS: ACETAMINOPHEN 500 MG TABLET PO PRN (16:51)
[2019-08-30 18:48] VITALS: BP 133/72
[2019-08-30] MEDS ORDERED: VANCOMYCIN 1,600 MG in SODIUM CHLORIDE 0.9% 250 ML IV SCH (20:00)
== END 2019-08-31 00:08 | disposition left against medical advice (07) | DRG 871 ==
LOC: ED 16:05 → EDIP 16:14 → 3N 17:45 → 4EST 08-29 18:08
PROVIDERS: ADMIT Internal Medicine; ATTEND Hospitalist
DX: A41.9 Sepsis, unspecified organism (principal); J18.9 Pneumonia, unspecified organism; N17.0 Acute kidney failure with tubular necrosis; L03.115 Cellulitis of right lower limb; L97.919 Non-pressure chronic ulcer of unspecified part of right lower leg with unspecified severity; L97.929 Non-pressure chronic ulcer of unspecified part of left lower leg with unspecified severity; B02.9 Zoster without complications; D64.9 Anemia, unspecified; E10.65 Type 1 diabetes mellitus with hyperglycemia; I87.2 Venous insufficiency (chronic) (peripheral); I83.019 Varicose veins of right lower extremity with ulcer of unspecified site; I83.029 Varicose veins of left lower extremity with ulcer of unspecified site; K02.9 Dental caries, unspecified; M72.9 Fibroblastic disorder, unspecified; D72.829 Elevated white blood cell count, unspecified; R74.0 Nonspecific elevation of levels of transaminase and lactic acid dehydrogenase [LDH]; Z87.39 Personal history of other diseases of the musculoskeletal system and connective tissue; Z91.14 Patient's other noncompliance with medication regimen; Z91.19 Patient's noncompliance with other medical treatment and regimen
CPT/HCPCS: 36415; 71045; 80048; 80053; 80076; 80202; 82040; 82607; 82728; 82962; 83036; 83540; 83550; 83605; 84443; 85025; 87040; 96365; 96375; G0378; J0295; J1644; J2543; J3370; J1815; J7030; J7050

== ENCOUNTER 2020-03-31 13:27 | Inpatient (IN) | payer MEDICAID ==
[~2020-03-31] VITALS: Ht 180.3 cm; Wt 76.1 kg
[2020-03-31] MEDS ORDERED: SODIUM CHLORIDE 0.9% 1,000ML IVBOLUS ONE ×3 (14:00→18:00)
[2020-03-31] MEDS ORDERED: SODIUM CHLORIDE FLUSH 10ML SYR IVF ONE (14:00)
[2020-03-31] MEDS ORDERED: VANCOMYCIN PER PHARMACY MC ONE (14:00)
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
--- NOTE | 2020-03-31 14:10 | NUR ---
upon arrival, pt stated that he needed to have a BM. when uncovering pt to attempt to get him to the bedside commode, it was noted that pt has extensive wounds to bilat LE and pt is unable to llift his legs. assisted pt to bedpan for liquid stool pt has multiple layers of paper towels wrapped around his RLE as well as some on his LLE. when attempting to remove the paper towel for assessment, it was discovered that the paper is now adhered to the skkin in places and cannot be pullled off
[2020-03-31] MEDS ORDERED: PLEASE ENTER HEIGHT AND WEIGHT MC SCH (14:30)
--- NOTE | 2020-03-31 14:30 | NUR ---
crenshaw has been inserted for core rewarmiong per MD order as pt is hypothermic. EKG has been to bedside and MD has been to bedside for eval warmed IV fluids have been initiated and warm blankets applied. pt posterior has been cleaned and ashley care given oral care has been provided and sterile saline being applied to bilat LE pt becoming increasingly hypotensive. MD to be notified
[2020-03-31 14:33] LABS: MEAN CORPUSCULAR HEMOGLOBIN 25.8 pg (27.5-34.5); MEAN CORPUSCULAR HGB CONC 31.7 g/dL (33.2-36.2); MEAN PLATELET VOLUME 7.7 fL (7.4-10.4); PLATELET COUNT 384 x10^3/uL (130-400); RED BLOOD COUNT 4.15 x10^6/uL (4.38-5.82); RED CELL DISTRIBUTION WIDTH 18.8 % (9.4-14.8)
[2020-03-31 14:35] LABS: HCT (SEDRATE) 33.4 % (39.2-51.8)
--- NOTE | 2020-03-31 14:45 | NUR ---
pt moved form room 8 to room T4
--- NOTE | 2020-03-31 14:45 | NUR ---
Stevie olivo in [facility] - 03/31/20 at 1731 by DINORAH pt moved from room 9 to T4
[2020-03-31 14:47] LABS: ALANINE AMINOTRANSFERASE 119 U/L (12-78); ALBUMIN 1.1 g/dL (3.4-5.0); ANION GAP 13 mmol/L (5-15); CALCIUM 8.2 mg/dL (8.5-10.1); CHLORIDE 118 mmol/L (98-107); CREATININE 2.58 mg/dL (0.7-1.3)
--- NOTE | 2020-03-31 14:50 | NUR ---
report to Carol SAUCEDO
[2020-03-31 14:52] LABS: INTERNATIONAL NORMALIZED RATIO 1.68 (0.93-1.1); PROTHROMBIN TIME 17.8 Seconds (9.6-11.5)
[2020-03-31 14:57] LABS: BILIRUBIN,TOTAL 0.5 mg/dL (0.2-1.0); CREATINE KINASE, TOTAL 384 U/L (39-308); TOTAL PROTEIN 7.4 g/dL (6.4-8.2); TROPONIN I < 0.015 ng/mL (0.000-0.045)
[2020-03-31] MEDS ORDERED: VANCOMYCIN 1,200 MG in SODIUM CHLORIDE 0.9% 250 ML IV ONE (15:00)
[2020-03-31 15:05] LABS: MD YES
[2020-03-31 15:08] LABS: LYMPH#(MANUAL) 1.19 x10^3/uL (1-3.4); LYMPHS% (MANUAL) 10 % (22-44)
[2020-03-31 15:09] LABS: BAND#(MANUAL) 1.67 x10^3/uL; BANDS%(MANUAL) 14 % (0-7); SEG#(MANUAL) 9.04 x10^3/uL (1.8-6.8); SEGS% (MANUAL) 76 % (42-75)
[2020-03-31 15:10] LABS: TARGET CELLS 1+
[2020-03-31 15:11] LABS: ANISOCYTOSIS 1+; HYPOCHROMIA 1+
[2020-03-31 15:12] LABS: <PLATELET ESTIMATE> ADEQUATE; <PLT MORPHOLOGY> NORMAL PLT MORPH
[2020-03-31 15:15] LABS: TOXIC GRAN 1+
--- NOTE | 2020-03-31 15:15 | NUR ---
pt has been placed on waffle mattress for comfort. bear hugger applied rectal temp probe has been inserted and core re-warming initiated. 2nd liter NS has been started using hotline fluid warmer prepping pt for central line placement
[2020-03-31 15:16] LABS: ALKALINE PHOSPHATASE 1153 U/L (45-117); PMNS WITH VACUOLES 1+
[2020-03-31 15:17] LABS: C-REACTIVE PROTEIN, QUANT > 19.00 mg/dL (0.02-0.49)
--- NOTE | 2020-03-31 15:20 | NUR ---
Dr King at bedside fooe central line placement
[2020-03-31] MEDS ORDERED: DEXTROSE 50%, 50ML SYRINGE ONE ×2 (15:21→17:33)
[2020-03-31] MEDS ORDERED: NOREPINEPHRINE 8 MG in SODIUM CHLORIDE 0.9% 242 ML IV PRN (15:30)
[2020-03-31 15:53] LABS: MICROSCOPIC INDICATED
[2020-03-31 16:00] LABS: AMPHETAMINE SCREEN, URINE Positive (Negative); BARBITURATE SCREEN, URINE Negative (Negative); BENZODIAZEPINE SCREEN, URINE Negative (Negative); CANNABINOID SCREEN, URINE Negative (Negative); COCAINE SCREEN, URINE Negative (Negative); METHADONE SCREEN, URINE Negative (Negative); OPIATE SCREEN, URINE Positive (Negative)
[2020-03-31] MEDS ORDERED: ONDANSETRON 2MG/ML, 2ML IVPush PRN (16:00)
[2020-03-31] MEDS ORDERED: OXYcodone IR 5MG TABLET PO PRN (16:00)
[2020-03-31] MEDS ORDERED: POLYETHYLENE GLYCOL 17 GM PACKET PO PRN (16:00)
[2020-03-31] MEDS ORDERED: BISACODYL 10 MG SUPP PR PRN (16:00)
[2020-03-31] MEDS ORDERED: VANCOMYCIN PER PHARMACY MC PRN (16:00)
[2020-03-31] MEDS: INSULIN LISPRO 100 UNITS/ML, PEN SQ-INSULIN SCH ×2 (16:00→22:00)
[2020-03-31 16:07] LABS: CLOSTRIDIUM DIFFICILE ANTIGEN NEGATIVE; CLOSTRIDIUM DIFFICILE TOXIN NEGATIVE (Negative)
[2020-03-31 16:12] LABS: FREE T4 (FREE THYROXINE) 1.21 ng/dL (0.76-1.46)
[2020-03-31] MEDS ORDERED: D5%-0.9% NACL 1,000 ML IV SCH ×2 (16:30→16:51)
[2020-03-31 17:00] VITALS: BP 112/58
[2020-03-31] MEDS: DEXTROSE 50%, 50ML SYRINGE IVPush PRN ×3 (17:30→22:21)
--- NOTE | 2020-03-31 17:31 | NUR ---
LATE ENTRY FOR EVENTS 1445, SBAR RPT REC'D FROM [facility] AND ASSUMED PT CARE. PT MOVED TO TRAUMA ROOM 4. BP LOW, DISCUSSED WITH DR MACEDO. CENTRAL LINE TO BE INSERTED AND LEVOPHED STARTED. OK TO START LEVOPHED ON PIV PRIOR TO CENTRAL LINE. LEVOPHED REC'D FROM RX AND INFUSION STARTED NOTED WITH EFFECT. CENTRAL LINE INSERTED BY DR MACEDO AND PCXR COMPLETED FOR LINE PLACEMENT. XRAY REV BY DR MCCONNELL AND VERBAL ORDER REC'D TO USE LINE. LEVOPHED MOVED FROM PIV TO CENTRAL LINE. WARM IVF BOLUSES NOTED INFUSED W/O ON HOT LINE. 3 WAYS BLADDER IRRIGATION INTITIATED USING WARMED NS. IRRIGATION MANAGED BY 2ND SHERYL VICTORIA. PT TOLLERATING WELL. REMBERTO HUGGER WARMER IN PLACE AND TEMP IMPROVING. 1520 REPEAT FSBS = 45, 1 AMP D50 NOTED WITH EFFECT. PT MORE ALERT AND BP IMPROVING. 1555 DR OTERO AT BEDSIDE, PT ASSESSMENT REVIEWED, EXTENSIVE WOUNDS TO DOREEN LE, AND FEET, RIGHT HIP WOUND, ORAL WOUNDS AT BACK OF THROAT, AND COCCYX ALL DISCUSSED. 1600 FSBS = 78, D5NS STARTED AT 100ML/HR. 1633 RAPID COVID SWAB COLLECTED AND PT TO CT WITH RN, EMT ESCORT. PT TOLLERATED CT WELL AND RTD TO ED AT 1645. VS NOTED, PT TOLLERATING SIPS OF WATER.
[2020-03-31] MEDS: HEPARIN 5,000 UNITS/ML, 1ML SQ SCH (17:37)
[2020-03-31] MEDS: morphine SULFATE 10 MG/ML, 1ML IVPush PRN (17:42)
[2020-03-31] MEDS: SODIUM BICARBONATE 8.4% 150 MEQ in DEXTROSE 5% 1,000 ML IV SCH (17:45)
[2020-03-31] MEDS ORDERED: DEXTROSE 50%, 50ML SYRINGE IVPush ONE (18:00)
[2020-03-31] MEDS ORDERED: PHARMACOKINETIC MONITORING MC PRN (18:00)
[2020-03-31] MEDS ORDERED: PHARMACOKINETIC CONSULTATION MC ONE (18:00)
[2020-03-31] MEDS ORDERED: GLUCAGON 1 MG IM PRN (18:30)
[2020-03-31] MEDS ORDERED: DEXTROSE 4 GM TAB.CHEW PO PRN (18:30)
[2020-03-31] MEDS: PIPERACILLIN/TAZO/PMX 2.25GM 50 ML IVPB SCH (18:31)
[2020-03-31] MEDS: SODIUM CHLORIDE FLUSH 10ML SYR IVF SCH (22:25)
[2020-04-01] MEDS ORDERED: ACETAMINOPHEN 650 MG SUPP PR PRN
[2020-04-01] MEDS: HEPARIN 5,000 UNITS/ML, 1ML SQ SCH ×3 (00:02→16:38)
[2020-04-01] MEDS: PIPERACILLIN/TAZO/PMX 2.25GM 50 ML IVPB SCH ×4 (00:08→18:23)
[2020-04-01] MEDS: morphine SULFATE 10 MG/ML, 1ML IVPush PRN ×2 (00:10→08:01)
[2020-04-01] MEDS: NOREPINEPHRINE 8 MG in SODIUM CHLORIDE 0.9% 242 ML IV PRN ×3 (00:58→14:59)
[2020-04-01] MEDS: SODIUM BICARBONATE 8.4% 150 MEQ in DEXTROSE 5% 1,000 ML IV SCH ×3 (00:58→22:14)
[2020-04-01] MEDS: INSULIN LISPRO 100 UNITS/ML, PEN SQ-INSULIN SCH ×4 (04:00→21:31)
[2020-04-01 04:23] LABS: MEAN CORPUSCULAR HGB CONC 32.5 g/dL (33.2-36.2); PLATELET COUNT 309 x10^3/uL (130-400); RED BLOOD COUNT 3.93 x10^6/uL (4.38-5.82); RED CELL DISTRIBUTION WIDTH 18.4 % (9.4-14.8)
[2020-04-01 04:34] LABS: INTERNATIONAL NORMALIZED RATIO 1.98 (0.93-1.1); PROTHROMBIN TIME 20.9 Seconds (9.6-11.5)
[2020-04-01 04:38] LABS: ALANINE AMINOTRANSFERASE 232 U/L (12-78); ALBUMIN 0.9 g/dL (3.4-5.0); ANION GAP 12 mmol/L (5-15); CALCIUM 6.9 mg/dL (8.5-10.1); CHLORIDE 120 mmol/L (98-107); CREATININE 2.54 mg/dL (0.7-1.3)
[2020-04-01 04:54] LABS: ALKALINE PHOSPHATASE 1665 U/L (45-117); BILIRUBIN,TOTAL 0.8 mg/dL (0.2-1.0); CREATINE KINASE, TOTAL 307 U/L (39-308); TOTAL PROTEIN 6.1 g/dL (6.4-8.2)
[2020-04-01 05:00] LABS: MD YES
[2020-04-01 05:03] LABS: ANISOCYTOSIS 1+; BAND#(MANUAL) 2.26 x10^3/uL; BANDS%(MANUAL) 17 % (0-7); ECHINOCYTES 1+; HYPOCHROMIA 1+; LYMPH#(MANUAL) 0.13 x10^3/uL (1-3.4); LYMPHS% (MANUAL) 1 % (22-44); MONOS% (MANUAL) 3 % (2-9); SEG#(MANUAL) 10.51 x10^3/uL (1.8-6.8); SEGS% (MANUAL) 79 % (42-75)
[2020-04-01 05:04] LABS: <PLATELET ESTIMATE> ADEQUATE; <PLT MORPHOLOGY> NORMAL PLT MORPH; PMNS WITH VACUOLES 1+; TOXIC GRAN 1+
[2020-04-01] MEDS ORDERED: MAGNESIUM SULFATE PMX 4GM/100M 100 ML IVPB ONE (06:30)
[2020-04-01] MEDS ORDERED: PANTOPRAZOLE 40MG TABLET PO SCH (07:30)
[2020-04-01] MEDS: DEXTROSE 50%, 50ML SYRINGE IVPush PRN ×2 (07:52→16:05)
[2020-04-01] MEDS ORDERED: DEXTROSE 10% 1,000 ML IV SCH ×3 (08:30→16:30)
[2020-04-01] MEDS: SENNA/DOCUSATE TABLET PO SCH (08:59)
[2020-04-01] MEDS: SODIUM CHLORIDE FLUSH 10ML SYR IVF SCH ×2 (09:00→21:20)
[2020-04-01] MEDS: THIAMINE 200 MG in SODIUM CHLORIDE 0.9% 50 ML IV SCH (09:12)
[2020-04-01] MEDS ORDERED: MIDAZOLAM 1 MG/ML, 2ML ONE (09:40)
[2020-04-01] MEDS ORDERED: FENTANYL PF 100 MCG/2ML ONE (09:40)
[2020-04-01] MEDS ORDERED: MULTIVITAMINS/MINERALS TABLET PO SCH (10:00)
[2020-04-01] MEDS: PHYTONADIONE 5 MG TABLET PO SCH (11:18)
[2020-04-01] MEDS ORDERED: CALCIUM CHLORIDE 10%, 10ML SYR ONE (11:28)
[2020-04-01] MEDS ORDERED: SODIUM BICARB 7.5%, 50ML SYRINGE ONE (11:28)
[2020-04-01] MEDS ORDERED: SUCCINYLCHOLINE 20 MG/ML, 10ML ONE (11:43)
[2020-04-01] MEDS ORDERED: GLYCOPYRROLATE 0.2MG/1ML, 5ML ONE (11:43)
[2020-04-01] MEDS ORDERED: PROPOFOL 10 MG/ML, 20ML ONE (11:43)
[2020-04-01] MEDS ORDERED: NEOSTIGMINE 1 MG/ML, 10ML ONE (11:43)
[2020-04-01] MEDS ORDERED: ROCURONIUM 10MG/ML,5ML ONE (11:43)
[2020-04-01] MEDS ORDERED: CEFAZOLIN 1,000 MG ONE (11:43)
[2020-04-01] MEDS ORDERED: ONDANSETRON 2MG/ML, 2ML ONE (11:43)
[2020-04-01] MEDS ORDERED: SODIUM BICARBONATE 8.4% 150 MEQ in DEXTROSE 5% 1,000 ML IV SCH (12:00)
[2020-04-01] MEDS ORDERED: PROPOFOL 100 ML IV ONE (12:08)
[2020-04-01] MEDS ORDERED: SENNA/DOCUSATE TABLET NG PRN (13:00)
[2020-04-01] MEDS ORDERED: PHARMACY MAY ADJ FOR RENAL FX MC SCH (13:00)
[2020-04-01] MEDS ORDERED: GLUCAGON 1 MG IM PRN (13:00)
[2020-04-01] MEDS ORDERED: ONDANSETRON 2MG/ML, 2ML IV PRN (13:00)
[2020-04-01] MEDS ORDERED: LIDOCAINE-MPF 1%, 2ML ENDO PRN (13:00)
[2020-04-01] MEDS ORDERED: DEXTROSE 4 GM TAB.CHEW PO PRN (13:00)
[2020-04-01] MEDS ORDERED: PROPOFOL 100 ML IV PRN (13:00)
[2020-04-01] MEDS ORDERED: SODIUM BICARB 8.4%, 50ML SYRINGE IVPush ONE (14:30)
[2020-04-01] MEDS: VASOPRESSIN 20 UNIT in SODIUM CHLORIDE 0.9% 99 ML IV PRN ×2 (14:41→17:52)
[2020-04-01] MEDS ORDERED: DAPTOMYCIN 500 MG in SODIUM CHLORIDE 0.9% 100 ML IV SCH (15:00)
[2020-04-01] MEDS: FENTANYL PF 1,000 MCG in SODIUM CHLORIDE 0.9% 80 ML IV PRN (15:16)
[2020-04-01] MEDS: CLINDAMYCIN PMX 600MG/50ML 50 ML IV SCH ×2 (15:30→21:20)
[2020-04-01 15:40] LABS: ALANINE AMINOTRANSFERASE 171 U/L (12-78); ALBUMIN 0.8 g/dL (3.4-5.0); ANION GAP 12 mmol/L (5-15); CALCIUM 6.9 mg/dL (8.5-10.1); CHLORIDE 120 mmol/L (98-107); CREATININE 2.47 mg/dL (0.7-1.3)
[2020-04-01 15:54] LABS: ALKALINE PHOSPHATASE 1307 U/L (45-117); BILIRUBIN,TOTAL 0.9 mg/dL (0.2-1.0); TOTAL PROTEIN 5.8 g/dL (6.4-8.2)
[2020-04-01] MEDS ORDERED: SODIUM BICARBONATE 8.4% 150 MEQ in DEXTROSE 10% 1,000 ML IV SCH (16:30)
[2020-04-01] MEDS ORDERED: SODIUM BICARBONATE 1 MEQ/ML, 50ML VIAL IVPush ONE (16:30)
[2020-04-01] MEDS ORDERED: DEXTROSE 50%, 50ML SYRINGE IVPush ONE (16:30)
[2020-04-01] MEDS: ACETAMINOPHEN 325 MG TABLET PO PRN ×2 (16:37→21:20)
[2020-04-01] MEDS ORDERED: STERILE WATER IV SCH (17:30)
[2020-04-01] MEDS ORDERED: DEXTROSE 70% IV SCH (17:30)
[2020-04-01] MEDS: NOREPINEPHRINE 32 MG in SODIUM CHLORIDE 0.9% 218 ML IV PRN (17:40)
[2020-04-02] MEDS: HEPARIN 5,000 UNITS/ML, 1ML SQ SCH ×3 (00:29→17:23)
[2020-04-02] MEDS: PIPERACILLIN/TAZO/PMX 2.25GM 50 ML IVPB SCH ×4 (00:29→17:58)
[2020-04-02] MEDS: CLINDAMYCIN PMX 600MG/50ML 50 ML IV SCH ×4 (03:39→21:40)
[2020-04-02] MEDS: FENTANYL PF 1,000 MCG in SODIUM CHLORIDE 0.9% 80 ML IV PRN ×2 (04:14→17:20)
[2020-04-02] MEDS: NOREPINEPHRINE 32 MG in SODIUM CHLORIDE 0.9% 218 ML IV PRN ×2 (04:14→13:55)
[2020-04-02 04:40] LABS: MEAN CORPUSCULAR HGB CONC 31.5 g/dL (33.2-36.2); PLATELET COUNT 158 x10^3/uL (130-400); RED BLOOD COUNT 3.56 x10^6/uL (4.38-5.82); RED CELL DISTRIBUTION WIDTH 18.9 % (9.4-14.8)
[2020-04-02 04:53] LABS: ALANINE AMINOTRANSFERASE 131 U/L (12-78); ALBUMIN 0.7 g/dL (3.4-5.0); ANION GAP 10 mmol/L (5-15); CALCIUM 6.2 mg/dL (8.5-10.1); CHLORIDE 114 mmol/L (98-107); CREATININE 2.56 mg/dL (0.7-1.3)
[2020-04-02 05:05] LABS: INTERNATIONAL NORMALIZED RATIO 1.63 (0.93-1.1); PROTHROMBIN TIME 17.3 Seconds (9.6-11.5)
[2020-04-02 05:07] LABS: ALKALINE PHOSPHATASE 1105 U/L (45-117); BILIRUBIN,TOTAL 0.7 mg/dL (0.2-1.0); TOTAL PROTEIN 5.7 g/dL (6.4-8.2); VANCOMYCIN,RANDOM 11.6 mcg/mL
[2020-04-02] MEDS: INSULIN LISPRO 100 UNITS/ML, PEN SQ-INSULIN SCH ×4 (05:12→22:30)
[2020-04-02 05:42] LABS: MD YES
[2020-04-02 05:46] LABS: BAND#(MANUAL) 9.71 x10^3/uL; BANDS%(MANUAL) 16 % (0-7); LYMPH#(MANUAL) 1.82 x10^3/uL (1-3.4); LYMPHS% (MANUAL) 3 % (22-44); MONOS#(MANUAL) 0.61 x10^3/uL (0.3-2.7); MONOS% (MANUAL) 1 % (2-9); SEG#(MANUAL) 48.56 x10^3/uL (1.8-6.8); SEGS% (MANUAL) 80 % (42-75)
[2020-04-02 05:47] LABS: ANISOCYTOSIS 1+; MICROCYTOSIS 1+
[2020-04-02 05:48] LABS: HYPOCHROMIA 1+
[2020-04-02 05:49] LABS: <PLATELET ESTIMATE> ADEQUATE; <PLT MORPHOLOGY> NORMAL PLT MORPH; ECHINOCYTES 1+; TOXIC GRAN 1+
[2020-04-02] MEDS: ACETAMINOPHEN 325 MG TABLET PO PRN ×2 (06:16→21:41)
[2020-04-02] MEDS: VASOPRESSIN 20 UNIT in SODIUM CHLORIDE 0.9% 99 ML IV PRN ×3 (06:16→21:40)
[2020-04-02] MEDS: SODIUM BICARBONATE 8.4% 150 MEQ in DEXTROSE 5% 1,000 ML IV SCH (08:48)
[2020-04-02] MEDS: SENNA/DOCUSATE TABLET PO SCH (09:00)
[2020-04-02] MEDS: PANTOPRAZOLE 40 MG IV IV SCH (09:00)
[2020-04-02] MEDS: PHYTONADIONE 5 MG TABLET PO SCH (09:00)
[2020-04-02] MEDS ORDERED: MULTIVIT.W/IRON, MINERALS ORAL SOL NG SCH (09:00)
[2020-04-02] MEDS: THIAMINE 200 MG in SODIUM CHLORIDE 0.9% 50 ML IV SCH (09:00)
[2020-04-02] MEDS: SODIUM CHLORIDE FLUSH 10ML SYR IVF SCH ×2 (09:01→21:41)
[2020-04-02] MEDS ORDERED: DEXTROSE 50%, 50ML SYRINGE IVPush ONE (10:00)
[2020-04-02] MEDS ORDERED: INSULIN REGULAR 100 UNITS/ML, 3ML VIAL IVPush ONE (10:00)
[2020-04-02] MEDS: DEXTROSE 50%, 50ML SYRINGE IVPush PRN ×2 (11:52→13:49)
[2020-04-02] MEDS ORDERED: DEXTROSE 10% 1,000 ML IV SCH ×2 (14:00→23:30)
[2020-04-02] MEDS: SODIUM ZIRCONIUM CYCLOSILICATE 10 GM NG SCH ×2 (14:55→22:10)
[2020-04-02 16:23] LABS: ANION GAP 8 mmol/L (5-15); CHLORIDE 113 mmol/L (98-107)
[2020-04-02 16:36] LABS: CREATININE 2.58 mg/dL (0.7-1.3)
[2020-04-02] MEDS ORDERED: CALCIUM GLUCONATE 4.6 MEQ/10 ML IVPush ONE (17:00)
[2020-04-02] MEDS ORDERED: CALCIUM GLUCONATE 4.6 MEQ in SODIUM CHLORIDE 0.9% 100 ML IV ONE (17:30)
[2020-04-02] MEDS ORDERED: CALCIUM GLUCONATE 4.6 MEQ in SODIUM CHLORIDE 0.9% 50 ML IV ONE (17:30)
[2020-04-02] MEDS ORDERED: DEXTROSE 10%, 1,000ML IV SCH (23:00)
[2020-04-03] MEDS: NOREPINEPHRINE 32 MG in SODIUM CHLORIDE 0.9% 218 ML IV PRN (00:58)
[2020-04-03] MEDS: HEPARIN 5,000 UNITS/ML, 1ML SQ SCH (01:07)
[2020-04-03] MEDS: PIPERACILLIN/TAZO/PMX 2.25GM 50 ML IVPB SCH ×2 (01:07→05:50)
[2020-04-03] MEDS: SODIUM BICARBONATE 8.4% 150 MEQ in DEXTROSE 5% 1,000 ML IV SCH (03:01)
[2020-04-03] MEDS: CLINDAMYCIN PMX 600MG/50ML 50 ML IV SCH ×2 (03:16→09:21)
[2020-04-03 03:49] LABS: BASOPHILS % (AUTO) 0 % (0-1); EOSINOPHILS % (AUTO) 0 % (1-7); LYMPHOCYTES % (AUTO) 3 % (22-44); MEAN CORPUSCULAR HEMOGLOBIN 24.6 pg (27.5-34.5); MEAN CORPUSCULAR HGB CONC 31.2 g/dL (33.2-36.2); MEAN PLATELET VOLUME 8.6 fL (7.4-10.4); MONOCYTES % (AUTO) 2 % (2-9); NEUTROPHILS % (AUTO) 96 % (42-75); PLATELET COUNT 72 x10^3/uL (130-400); RED BLOOD COUNT 3.21 x10^6/uL (4.38-5.82); RED CELL DISTRIBUTION WIDTH 19.1 % (9.4-14.8)
[2020-04-03 03:59] LABS: ALBUMIN 0.6 g/dL (3.4-5.0); ANION GAP 12 mmol/L (5-15); CHLORIDE 107 mmol/L (98-107)
[2020-04-03 04:02] LABS: ALANINE AMINOTRANSFERASE 85 U/L (12-78); ALKALINE PHOSPHATASE 937 U/L (45-117); BILIRUBIN,TOTAL 0.9 mg/dL (0.2-1.0); CREATININE 2.96 mg/dL (0.7-1.3); TOTAL PROTEIN 5.6 g/dL (6.4-8.2)
[2020-04-03 04:03] LABS: CALCIUM 5.8 mg/dL (8.5-10.1)
[2020-04-03 04:53] LABS: MD YES
[2020-04-03 04:57] LABS: ANISOCYTOSIS 1+; BANDS%(MANUAL) 8 % (0-7); ECHINOCYTES 1+; HYPOCHROMIA 1+; LYMPH#(MANUAL) 1.13 x10^3/uL (1-3.4); LYMPHS% (MANUAL) 2 % (22-44); MICROCYTOSIS 1+; SEG#(MANUAL) 50.67 x10^3/uL (1.8-6.8); SEGS% (MANUAL) 90 % (42-75); TOXIC GRAN 1+
[2020-04-03 04:58] LABS: <PLATELET ESTIMATE> DECREASED; <PLT MORPHOLOGY> NORMAL PLT MORPH
[2020-04-03] MEDS: INSULIN LISPRO 100 UNITS/ML, PEN SQ-INSULIN SCH (05:20)
[2020-04-03] MEDS: VASOPRESSIN 20 UNIT in SODIUM CHLORIDE 0.9% 99 ML IV PRN (05:50)
[2020-04-03] MEDS ORDERED: CALCIUM GLUCONATE 9.2 MEQ in SODIUM CHLORIDE 0.9% 100 ML IV ONE (06:00)
[2020-04-03] MEDS ORDERED: LEVOFLOXACIN/PMX 750MG/150ML 150 ML IV SCH (08:00)
[2020-04-03] MEDS: PANTOPRAZOLE 40 MG IV IV SCH (09:00)
[2020-04-03] MEDS: SODIUM CHLORIDE FLUSH 10ML SYR IVF SCH (09:21)
[2020-04-03] MEDS: THIAMINE 200 MG in SODIUM CHLORIDE 0.9% 50 ML IV SCH (09:21)
[2020-04-03] MEDS: SODIUM ZIRCONIUM CYCLOSILICATE 10 GM NG SCH (09:22)
[2020-04-03] MEDS ORDERED: MORPHINE SULFATE 4 MG/ML, 1ML IV ONE (10:30)
[2020-04-03] MEDS ORDERED: MORPHINE 30MG/30ML PCA.SYR IV PRN (10:30)
[2020-04-03] MEDS ORDERED: morphine SULFATE 10 MG/ML, 1ML IVPush ONE (10:30)
[2020-04-03] MEDS ORDERED: ONDANSETRON 2MG/ML, 2ML IVPush PRN (10:30)
[2020-04-03] MEDS ORDERED: LORazepam 2 MG/ML, 1ML IVPush PRN ×2 (10:30)
[2020-04-03] MEDS ORDERED: SODIUM CHLORIDE FLUSH 10ML SYR IVF SCH (10:30)
[2020-04-03] MEDS ORDERED: LORazepam 2 MG/ML, 1ML IV ONE (10:30)
[2020-04-03] MEDS ORDERED: MORPHINE SULFATE 4 MG/ML, 1ML IVPush PRN (10:30)
[2020-04-03] MEDS ORDERED: ATROPINE OPHTH SOLN 1%, 5ML PO PRN (10:30)
[2020-04-03] MEDS ORDERED: LORazepam 2 MG/ML, 1ML IVPush SCH (10:30)
== END 2020-04-03 13:00 | disposition expired | DRG 853 ==
LOC: ED 14:01 → EDIP 15:34 → CCU 17:13
PROVIDERS: ADMIT Internal Medicine; ATTEND Internal Medicine
PROC: 0T9B70Z Drainage of Bladder with Drainage Device, Via Natural or Artificial Opening (ICD-10-PCS; 2020-03-31)
PROC: 0BH17EZ Insertion of Endotracheal Airway into Trachea, Via Natural or Artificial Opening (ICD-10-PCS; 2020-04-01)
PROC: 02HV33Z Insertion of Infusion Device into Superior Vena Cava, Percutaneous Approach (ICD-10-PCS; 2020-04-01)
PROC: 0JBP0ZZ Excision of Left Lower Leg Subcutaneous Tissue and Fascia, Open Approach (ICD-10-PCS; 2020-04-01)
PROC: 0JBL0ZZ Excision of Right Upper Leg Subcutaneous Tissue and Fascia, Open Approach (ICD-10-PCS; 2020-04-01)
PROC: 0QBL0ZZ Excision of Right Tarsal, Open Approach (ICD-10-PCS; 2020-04-01)
PROC: 5A1945Z Respiratory Ventilation, 24-96 Consecutive Hours (ICD-10-PCS; principal; 2020-04-01 10:00)
DX: A41.9 Sepsis, unspecified organism (principal); L89.154 Pressure ulcer of sacral region, stage 4; E43 Unspecified severe protein-calorie malnutrition; G93.41 Metabolic encephalopathy; J96.01 Acute respiratory failure with hypoxia; J96.02 Acute respiratory failure with hypercapnia; K72.00 Acute and subacute hepatic failure without coma; N17.0 Acute kidney failure with tubular necrosis; R65.21 Severe sepsis with septic shock; D68.9 Coagulation defect, unspecified; E87.0 Hyperosmolality and hypernatremia; E87.2 Acidosis; G93.49 Other encephalopathy; I42.9 Cardiomyopathy, unspecified; L02.415 Cutaneous abscess of right lower limb; L03.115 Cellulitis of right lower limb; L03.116 Cellulitis of left lower limb; N39.0 Urinary tract infection, site not specified; Z99.11 Dependence on respirator [ventilator] status; M86.8X6 Other osteomyelitis, lower leg; Z66 Do not resuscitate; D50.9 Iron deficiency anemia, unspecified; D69.6 Thrombocytopenia, unspecified; B96.5 Pseudomonas (aeruginosa) (mallei) (pseudomallei) as the cause of diseases classified elsewhere; D63.8 Anemia in other chronic diseases classified elsewhere; D72.823 Leukemoid reaction; E11.51 Type 2 diabetes mellitus with diabetic peripheral angiopathy without gangrene; E11.649 Type 2 diabetes mellitus with hypoglycemia without coma; E83.39 Other disorders of phosphorus metabolism; E83.41 Hypermagnesemia; E83.42 Hypomagnesemia; E83.51 Hypocalcemia; E87.5 Hyperkalemia; F15.10 Other stimulant abuse, uncomplicated; I10 Essential (primary) hypertension; K40.90 Unilateral inguinal hernia, without obstruction or gangrene, not specified as recurrent; E11.69 Type 2 diabetes mellitus with other specified complication; Z20.822 Contact with and (suspected) exposure to COVID-19; K80.20 Calculus of gallbladder without cholecystitis without obstruction; M60.9 Myositis, unspecified; Z68.23 Body mass index [BMI] 23.0-23.9, adult
CPT/HCPCS: 36415; 36600; 84145; 87806; 89055; 96361; 96374; 99285; J7042; 70450; 70486; 71045; 72125; 76700; 80048; 80053; 80074; 80202; 80307; 81001; 82140; 82306; 82330; 82533; 82550; 82728; 82803; 82947; 82962; 83036; 83540; 83550; 83605; 83690; 83735; 83970; 84100; 84132; 84295; 84439; 84443; 84478; 84481; 84484; 84550; 85014; 85025; 85610; 85651; 86140; 86592; 87015; 87040; 87070; 87075; 87077; 87081; 87086; 87102; 87116; 87147; 87181; 87186; 87205; 87206; 87324; 87635; 93005; 93306; 93922; 93925; 94002; 94003; G0378; J0610; J0690; J0878; J1644; J1815; J1956; J2250; J2405; J2543; J2704; J2710; J3010; J3370; J3411; J7070; C9113; G0475; J0330; J2060; J2270; J3475; J7030; J7050